=== PATIENT | female | born 2005 | race Caucasian/White ===

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

== ENCOUNTER 2025-02-02 10:10 | Emergency (ER) | payer OTHER, SELFPAY ==
--- NOTE | ~2025-02-02 | XR_ITS ---
EXAMINATION: XR CHEST CLINICAL INFORMATION: cough, fevers COMPARISON: None available. TECHNIQUE: 2 views of the chest were obtained. FINDINGS: No significant abnormality is noted involving the heart, lungs, mediastinum, bony thorax or soft tissues. XR/XR chest 2V IMPRESSION: No acute disease Electronically signed by: Mark Okeefe MD 02/02/2025 11:41 AM EDT
[2025-02-02 10:16] VITALS: BP 110/66; BP 126/60; PULSE 75; PULSE 80; RESP 16; TEMP 36.6; O2SAT 100; BMI 21.6
--- OUTSIDE RECORDS SUMMARY | 2025-02-02 10:20 | XMS_ITS | Encounter Summary ---
Author Organization [employer] Address [address] [place] [address] Care Team Providers Care Bin Operator Name Role Phone Elizabeth Workman SCREEN CLEANER Primary Care Provider [phone] Encounter Details Date Type Department Care Team (Late st Contact Info) Description 02/02/2025 10:20 AM EDT Office Visit [facility] [address] [place] [address] Social History Tobacco Use Types Packs/Day Years Used Date Smoking Tobacco: Never Passive Smoke Exposure: Never Smokeless Tobacco: Never Alcohol Use Standard Drinks/Week Comments Never 0 (1 standard drink = 0.6 oz pur e alcohol) occasional Depression Answer Date Recorded Patient Health Questionnaire-9 Score 8 01/24/2025 Patient Health Questionnaire-9 Score 8 01/24/2025 Last PHQ-9: Questionnaire Data Not on file 0 01/24/2025 Housing Stability Answer Date Recorded What is your housing situation today? I have myriam wong 01/02/[address] you li ve. Do you have problems with any of the following? None of the above 01/02/2025 Food Insecurity Answer Date Recorded Within the past 12 months, y ou worried that your food would run out before you got money to buy more: Never True 01/02/2025 Within the past 12 months,th e food you bought just didn't last and you didn't have enough money to get more: Never True Transportation Answer Date Recorded In the past 12 months, has l ack of transportation kept you from medical appts, meetings, work or from getting things needed for daily living? No 01/02/2025 Utilities Answer Date Recorded In the past 12 months, has t he electric, gas, oil or water company threatened to shut off services in your home? No 01/02/2025 Depression Answer Date Recorded Patient Health Questionnaire-2 Score 2 01/24/2025 Internet Access Answer Date Recorded Internet Access Q1 Yes 01/02/2025 Internet Access Q2 Not on file 01/02/2025 Comments No Sex and Gender Information Value Date Recorded Sex Assigned at Female 04/06/2022 10:18 AM EDT Legal Sex Female 10:18 AM EDT Gender Identity Female 04/06/2022 10:18 AM EDT Sexual Orientation Straight 04/06/2022 10 :18 AM EDT documented as of this encounter Last Filed Vital Signs Vital Sign Reading Time Taken Comments Blood Pressure 120/62 02/02/2025 9:39 AM EDT Pulse 116 02/02/2025 9:39 AM EDT Temperature 36.8 C (98.2 F) 02/02/2025 9:39 AM EDT Respiratory Rate 20 02/02/2025 9:39 AM EDT Oxygen Saturation 90% 02/02/2025 9:39 AM EDT Inhaled Oxygen Concentration - - Weight - - Height - - Body Mass Index - - documented in this encounter Plan of Treatment Upcoming Encounters Date Type Department Care Team (Late st Contact Info) Description 02/23/2025 9:00 AM EDT Office Visit [address] [id number] Elizabeth Workman FNP [address] [place] [phone] 03/21/2025 9:30 AM EDT Clinical Support [facility] [address] [place] [id number] documented as of this encounter Visit Diagnoses Not on filedocumented in this encounter Additional Health Concerns Assessment Noted Time PHQ-9 Depression Total Score: 8 01/25/20 25 1:38 PM EDT documented as of this encounter Care Teams Bin Operator Relationship Specialty Start Date End Date Elizabeth Workman FNP [address] [place] [id number] PCP - General Family Medicine 12/24/23 documented as of this encounter
[2025-02-02 10:55] LABS: IDNOW Serial# 55D5AD1C; Strep A Nucleic Acid Negative (Negative)
--- NOTE | 2025-02-02 11:05 | ED.URI ---
HPI - URI/Sore Throat General Chief Complaint: Upper Respiratory Symptoms Stated Complaint: SOB,NEAR SYNCOPE,?COVID PER EMS Time Seen by Provider: 02/02/25 11:04 Source: patient and old records reviewed Mode of arrival: ambulatory Limitations: no limitations History of Present Illness ED Provider: HAILEY SAGASTUME Narrative: 19 yo female with PMH of anemia, leukopenia, bronchitis states she went Poll [place]where in [place] but denies sick contacts. She notes since yesterday she has had chest wall pain, chest pain with cough, intermittent chest pains. No other travel/procedures/she is only on depo. She states it hurts to take a deep breath. She is worried she has COVID. She had a prehospital EKG showing early repolarization but the doctor also told her she needed a chest xray for blood clots and she needed work up for heart attack. She has not taken any medications for this. She has body aches, chest pains, chills, runny nose. MD elicited complaint: rhinorrhea Onset (ago): day(s) (yesterday) Consistency: intermittent Severity: moderate Description of mucous: clear Able to tolerate fluids by mouth: Yes Exacerbating factors: other (coughing) Relieving factors: nothing Context: sick contacts (states she works at [employer] so it could be that) Associated symptoms: chills, myalgias, headache, rhinorrhea and cough Treatments prior to arrival: none Related Data Previous Rx's ?Medication ?Instructions ?Recorded hydroxyzine HCl 25 mg tablet 25 mg PO Q8H PRN anxiety #20 tabs 12/20/23 amoxicillin 875 mg-potassium 1 tab PO BID 10 days #20 tabs 04/19/24 clavulanate 125 mg tablet azithromycin 250 mg tablet See Rx Instructions PO .COMPLEX #6 04/19/24 tabs prednisone 20 mg tablet 20 mg PO DAILY 7 days #7 tabs 04/19/24 albuterol sulfate 90 mcg/actuation 2 puff inhalation QID PRN 02/02/25 aerosol inhaler shortness of breath or wheezing #6.7 grams ibuprofen 600 mg tablet 600 mg PO Q6H PRN pain #30 tabs 02/02/25 ondansetron 4 mg disintegrating 4 mg PO Q8H PRN nausea and 02/02/25 tablet vomiting #20 tabs Allergies Allergy/AdvReac Type Severity Reaction Status Date / Time melatonin AdvReac Nightmare Verified 02/02/25 10:21 Review of Systems Review of Systems: Constitutional : No Weight loss, pos Fever, pos Chills ENT/Mouth : No sore throat, pos Rhinorrhea Eyes: No Eye Pain, No Swelling Cardiovascular : pos Chest Pain, pos SOB, no Dyspnea on Exertion, No Orthopnea, No Edema, No Palpitations Respiratory : pos Cough, No Sputum Gastrointestinal : pos Nausea, No Vomiting, No Diarrhea, No abdominal Pain, No Hematochezia, No Melena Genitourinary : No Dysuria, No Urinary Frequency Musculoskeletal : No joint pain, pos Myalgias, No Joint Swelling Skin : No Skin Lesions, No rash Neuro : No Weakness, No Numbness, No Dizziness, pos Headache All other systems reviewed and are negative [facility] Past Medical History Attestation statement: The following information was validated with the patient. Source: old records reviewed Medical History Anxiety Social History Social History Alcohol intake: never Patient Tobacco Use Status: Never used Tobacco Physical Exam Vital Signs: Vital Signs: Last Vital Signs Temp 98.2 F 02/02/25 13:27 Pulse 73 02/02/25 13:27 Resp 16 02/02/25 13:27 BP 110/63 02/02/25 13:27 Pulse Ox 100 02/02/25 13:27 O2 Del Method Room Air 02/02/25 13:27 BMI result Body Mass Index 21.6 Appearance: Alert. Oriented X3. No acute distress. Eyes: Pupils equal, round and reactive to light. ENT: Pharynx normal. Neck: Normal inspection. Neck supple. CVS: Normal heart rate and rhythm. Pulses normal. chest wall: ttp along anterior chest wall Respiratory: No respiratory distress. Breath sounds normal. Abdomen: Soft and nontender. Skin: Skin warm and dry. Normal skin color. Normal skin turgor. Extremities: No lower extremity edema. No calf ttp Neuro: Oriented X 3. No motor deficit. No sensory deficit. CN2-12 intact Medications Administered Discontinued Medications Generic Name Dose Route Start Last Admin Trade Name Freq PRN Reason Stop Dose Admin Lactated Ringer's 1,000 mls @ 999 mls/hr 02/02/25 11:33 02/02/25 11:39 Lr IV 02/02/25 12:33 999 mls/hr .Q1H1M ONE Administration Ketorolac Tromethamine 15 mg 02/02/25 11:33 02/02/25 11:39 Ketorolac Tromethamine 15 Mg/Ml Vial IVPUSH 02/02/25 11:34 15 mg ONCE ONE Administration Medical Decision Making Medical Decision Making [facility] Narrative: 19 yo female with PMH of anemia, leukopenia, bronchitis here with viral like illness and chest pain x 24 hours - she is PERC negative, pulses intact doubt dissection, no risk factors for ACS at this time will obtain basic labs, hydrate, start on NSAIDs and obtain bedside ECHO. I suspect she has a viral syndrome. Differential Diagnosis Differential Diagnoses: The differential diagnosis associated with the presentation includes viral syndrome, bronchitis, virus, chest wall pain Admission/Observation Consideration of admission/observation: Escalation of care including admission/observation considered PERC negative VS stable here overall looks better Trop flat x 1 EKG early repolarization normal bedside cardiac POCUS Lab Data [facility] Lab Attestation statement: I reviewed the patient's lab results. 02/02/25 11:28 02/02/25 11:28 Labs: Lab Results 02/02/25 02/02/25 Range/Units 10:41 11:28 WBC 5.1 (4.8-10.8) X10*3/uL RBC 4.57 (4.20-5.50) X10*6/uL Hgb 13.0 (12.0-16.0) g/dl Hct 37.7 (37.0-47.0) % MCV 82.5 (80.0-98.0) fL MCH 28.4 (27.0-33.0) pg MCHC 34.5 (31.0-35.0) g/dl RDW 12.7 (11.0-16.0) % Plt Count 289 (160-400) X10*3/uL MPV 10.0 (9.4-12.3) fL Immature Gran % (Auto) 0.2 (0.0-0.4) % Neut % (Auto) 56.4 (45-73) % Lymph % (Auto) 28.4 (20-40) % [place] % (Auto) 10.5 (2-11) % Eos % (Auto) 3.9 (0-4) % Baso % (Auto) 0.6 (0-2) % Lymph # (Auto) 1.4 (1.2-4.9) X10*3/uL [place] # (Auto) 0.5 (0.1-1.2) X10*3/uL Eos # (Auto) 0.2 (0.0-0.4) X10*3/uL Baso # (Auto) 0.0 (0.0-0.2) X10*3/uL Abs Immat Gran (auto) 0.01 (0.00-0.03) X10*3/uL Absolute Neuts (auto) 2.9 (2.0-8.3) x10*3/uL Absolute Nucleated RBC 0.000 (0.0-0.012) X10*3/uL Nucleated RBC % (auto) 0.0 (0.0-0.2) /100WBC Sodium 142 (135-145) mmol/L Potassium 3.5 (3.3-5.1) mmol/L Chloride 112 H (96-108) mmol/L Carbon Dioxide 24 (22-29) mmol/L Anion Gap 10 L (12-20) BUN 10 (9-16) mg/dL Creatinine 0.62 (0.5-1.4) mg/dL Estim Creat Clear Calc 120.7 Estimated GFR > 60 Random Glucose 95 (60-115) mg/dL Calcium 8.8 (8.4-10.2) mg/dL Troponin I High Sens < 2.7 (<3.5-17.0) ng/L Beta HCG, Quant < 2 mIU/mL Urine Color Yellow Urine Appearance Clear Urine pH 6.0 (5.0-9.0) Ur Specific [place] 1.015 (1.005-1.025) Urine Protein Negative (Neg-Trace) mg/dL Urine Glucose (UA) Negative (Negative) mg/dL Urine Ketones Negative (Negative) mg/dL Urine Blood Trace H (Negative) Urine Nitrite Negative (Negative) Ur Leukocyte Esterase Trace H (Negative) Urine RBC 3-5 H (0-2) /HPF Urine WBC 0-5 (0-5) /HPF Ur Squamous Epith Cells 3-5 (0-2) /HPF Urine Bacteria Trace (None Seen) Hyaline Casts 0-2 (0-2) /LPF COVID-19 (RAMON) Negative (Negative) COVID-19 Clin Com See Note Influenza Type A (ANGELIKA) Negative (Negative) Influenza Type B (ANGELIKA) Negative (Negative) Influenza A & B Note See Note S. pyogenes GrpA ANGELIKA Negative (Negative) Independent Interpretation I performed an independent interpretation of an: EKG and Plain X-Ray (no pneumonia) Interpretation: Rate: 71 Rhythm: NSR [place]: normal Normal P waves. Normal STEPHANE. Normal QRS complex. ST T wave : no GAMA other than early repolarization qTC: 402 prior studies: The study has been interpreted contemporaneously by me. . Radiology Impression Discussion of test interpretation with radiology: I have reviewed the radiologist's reading. Independent Historian Clinical information obtained from an independent historian. History obtained from or confirmed by: EMS External Record Review External record reviewed: Outpatient record Prescription Management I considered prescription management with: Other Procedures Procedure Narrative Procedure Narrative: EMERGENCY ULTRASOUND INTERPRETATION-Limited Echocardiography? The study reveals:? Impression: NORMAL LV FUNCTION, NO RV DYSFUNCTION, NO PERICARDIAL EFFUSION Emergent Cardiac for Indication:? Views Used: PLAX, PSSA, A4, SX, IVC Pericardial Effusion/Tamponade Findings: NONE RV Dilation (> LV diam in 4ch apical):? NONE Global LV Fxn: NORMAL IVC Dilation and Resp Variation: NORMAL Performed by: HAILEY Date: 02/02/25 Time: 115pm CPT:18023; Reference Codes? [email or web address] [email or web address] Discharge Plan Discharge Clinical Impression: Viral infection Patient Disposition: Home, Self-Care Instructions: Viral Syndrome (ED) Additional Instructions: your labs are reassuring your COVID swab was negative and was your strep test your blood counts were normal, your EKG and bedside ECHO were reassuring, your test for your heart was normal rest and stay hydrated return for any worsening symptoms or concerns. Prescriptions: New ibuprofen 600 mg tablet 600 mg PO Q6H PRN (Reason: pain) Qty: 30 0RF albuterol sulfate 90 mcg/actuation HFA aerosol inhaler 2 puff inhalation QID PRN (Reason: shortness of breath or wheezing) Qty: 6.7 0RF ondansetron 4 mg tablet,disintegrating 4 mg PO Q8H PRN (Reason: nausea and vomiting) Qty: 20 0RF No Action hydroxyzine HCl 25 mg tablet 25 mg PO Q8H PRN (Reason: anxiety) Qty: 20 0RF azithromycin 250 mg tablet See Rx Instructions .ROUTE .COMPLEX Qty: 6 0RF Rx Instructions: For 250 mg dose pack: take 500 mg today (day 1), then 250 mg for 4 days (days 2-5) prednisone 20 mg tablet 20 mg PO DAILY 7 Days Qty: 7 0RF amoxicillin-pot clavulanate 875-125 mg tablet 1 tab PO BID 10 Days Qty: 20 0RF Stand Alone Forms: Work/School Release Interventions: ED Discharge Assessment Last Done: 02/02/25 13:27 Discharge Date/Time: 02/02/25 13:35 Print Language: Iraqi
[2025-02-02 11:06] LABS: IDNOW Serial# 58CA691E
[2025-02-02 11:07] LABS: COVID-19 Test Negative (Negative); IDNOW Serial# 08D9AD1C; Influenza B2 Negative (Negative)
--- OUTSIDE RECORDS SUMMARY | 2025-02-02 11:20 | XMS_ITS | Encounter Summary ---
Author Organization [employer] Address [address] [facility] 7[address] [place] [address] Care Team Providers Care Director Human Services Name Role Phone Elizabeth Workman COUNSELOR MARRIAGE AND FAMILY Primary Care Provider Encounter Details Date Type Department Care Team ([facility] st Contact Info) Description 02/02/2025 Orders Only GENERIC EXTERNAL DATA DEPARTMENT Provider, Generic External Data Social History Tobacco Use Types Packs/Day Years [...] is your housing situation today? I have myriamlaurel wong 01/02/[address] you [...] AM EDT documented as of this encounter Plan of Treatment Upcoming Encounters Date Type Department Care Team ([facility] st Contact Info) Description 02/23/2025 9:00 AM EDT Office Visit [address] [address] [facility] [address] [place] [address] 03/21/2025 9:30 AM EDT Clinical Support [address] [address] documented as of this encounter Procedures Procedure Name Priority Date/Time Associated Diagnosis Comments INFLUENZA A B2 ID NOW (ADDISON) Routine 02/02/2025 10:41 AM EDT STREP A NUCLEIC ACID Routine 02/02/2025 10:41 AM EDT COVID-19 ID NOW (ADDISON) Routine 02/02/2025 10:41 AM EDT documented in this encounter Results * COVID-19 ID NOW (ADDISON) (02/02/2025 10:41 AM EDT) IDNOW SERIAL# [id number] [facility] COVID-19 TEST Negative Negative [facility] COVID-19 NOTE See Note [facility] Comment: Results are for the identification of SARS-CoV2 RNA. TheSARS-CoV2 RNA is generally detectable in respiratory samplesduring the acute phase of infection. Positive results areindicative of the presence of SARS-CoV-2 RNA; clinicalcorrelation with patient history and other diagnosticinformation is necessary to determine patient infectionstatus. Positive results do not rule out bacterial infectionor co- infection with other viruses.Testing facilities within the [facility] and [facility] are required to report all positive results tothe appropriate public health authorities.Negative results should be treated as presumptive and, ifinconsistent with clinical signs and symptoms or necessaryfor patient management, should be tested with differentauthorized or cleared molecular tests. Negative results donot preclude SARS-CoV2 RNA infection and should not be usedas the sole basis for patient management decisions. Negativeresults should be considered in the context of a patient'srecent exposures, history and the presence of clinical signsand symptoms consistent with COVID-19.This test has been authorized by the FDA under an EmergencyUse Authorization (EUA) for use by authorized laboratories.Testing performed on the [place] ID NOW utilizing NAAT. 02/02/2025 10:4 1 AM EDT 02/02/2025 10:45 AM EDT us Generic External Data Provider LAB MOLECULAR MANDA GNOSTICS ORDERABLES Final Result [facility] [address] [place] [phone] * Influenza A B2 ID NOW (Culinary Agents) (02/02/2025 10:41 AM EDT) IDNOW SERIAL# [id number] [facility] Influenza A Negative Negative [facility] Influenza B2 Negative Negative [facility] Influenza A B2 Note See Note [facility] Comment:The [place] ID NOW In fluenza A B2 test is used for thequalitative detection of influenza A and B from patientswith signs and symptoms of respiratory infection.Negative results do not preclude influenza virus infectionand should not be used as the sole basis for diagnosis,treatment or other patient management decisions.There is a risk of false negative results due to thepresence of variants in the viral targets of the assay, lowlevels of virus in the specimen and co- infection withRespiratory Syncytial Virus. 02/02/2025 10:4 1 AM EDT 02/02/2025 10:45 AM EDT Generic External Data Provider LAB MICROBIOLOGY - GENERAL ORDERABLES Final Result Performing Organization Address [facility] de Phone Number [facility] [address] [place] [phone] * Strep A Nucleic Acid (02/02/2025 10:41 AM EDT) IDNOW SERIAL# [id number] [facility] Strep A Nucleic Acid Negative Negative [facility] Comment:All test results mus t be correlated with clinical findings.This test has not been evaluated for monitoring treatment ofinfection.Additional follow-up testing using the culture method isrequired if the result is negative and clinical symptomspersist, or in the event of an acute rheumatic feveroutbreak. 02/02/2025 10:4 1 AM EDT 02/02/2025 10:45 AM EDT Generic External Data Provider LAB MICROBIOLOGY - GENERAL ORDERABLES Final Result Performing Organization Address [facility] de Phone Number [facility] [address] [place] [phone] documented in this encounter Visit Diagnoses Not on filedocumented in this encounter Additional Health Concerns Assessment Noted Time PHQ-9 Depression Total Score: 8 01/25/20 25 1:38 PM EDT documented as of this encounter Care Teams Director Human Services Relationship Specialty Start Date End Date Elizabeth Workman FNP [address] [place] [phone] PCP - General Family Medicine 12/24/23 documented as of this encounter
--- OUTSIDE RECORDS SUMMARY | 2025-02-02 11:20 | XMS_ITS | Encounter Summary ---
Author Organization [employer] Address [address] [facility] 7[address] [place] [address] Care Team Providers Care Social Media Marketing Specialist Name Role Phone Yaneth Mirza DO Primary Care Provider Argentina Castañeda SAW OPERATOR Primary Care Provider [phone] Norah Bernardo DISTRIBUTION A CLASS LINEMAN Primary Care Provider MontezumaElizabeth SAW OPERATOR Primary Care Provider Reason for Visit * Reason Onset Date Comments triage 11/03/2022 Encounter Details Date Type Department Care Team (Late st Contact Info) Description 11/03/2022 Telephone [facility] [address] [place], [place] [phone] Yaneth Mirza DO [address] [place], [place] [phone] triage Social History Tobacco Use Types Packs/Day Years Used Date Smoking Tobacco: Never Assessed Comments Unknown Sex and Gender Information Value Date Recorded Sex Assigned at Female 04/06/2022 10:18 AM EDT Legal Sex Female 10:18 AM EDT Gender Identity Female 04/06/2022 10:18 AM EDT Sexual Orientation Straight 04/06/2022 10 :18 AM EDT COVID-19 Exposure Response Date Recorded In the last 10 days, have yo u been in contact with someone who was confirmed or suspected to have Coronavirus/COVID-19? No / Unsure 11/03/2022 2:22 PM EDT documented as of this encounter Miscellaneous Notes * Telephone Encounter - Lydia Farah RN - 11/03/2022 2:03 PM EDT Triage call with [place] [facility] Coordinator [place] [id number] Pt mother reports Pt started with a headache a few days ago. Pt was working Sat afternoon and started having a headache , got shaky and weak. Pt has reported that there is light and sound sensitivity. Pt also had some nausea. Pain is mainly located in forehead and back of head. Pt is taking tylenolfor pain with some effect and is out of school today. Advised Mother to bring [facility] today forprovider to see her. Mother agreed with disposition and home care reviewed. Protocol Used: Headache (Pediatric) Protocol-Based Disposition: See in Office or Video Visit Today or Tomorrow Video visit not offered Positive Triage Question: * Headache present > 24 hours and unexplained (Exception: analgesics not yet tried, or headache is part of a viral illness) * All higher-acuity triage questions were negative Care Advice Discussed: * Reassurance and Education - Mild Headache * Pain Medicine * Food May Help * Rest - Lie Down * Cold Pack for Pain * Stretch Neck Muscles * Reasons To Call Back - Headache becomes severe - Vomiting occurs - Unexplained headache lasts over 24 hours - Headache with a viral illness lasts over 3 days - Your child becomes worse * Telephone Encounter - Tiffanie Black - 11/03/2022 11:36 AM EDT Symptom: Headache Outcome: Schedule an urgent appointment (within 4 hours) or talk to a nurse or provider soon Reason: Started within the past 3 days The caller accepted this outcome documented in this encounter Plan of Treatment Upcoming Encounters Date Type Department Care Team (Late st Contact Info) Description 02/23/2025 9:00 AM EDT Office Visit [facility] [address] [place] [address] MontezumaElizabeth FNP [address] [place] [address] 03/21/2025 9:30 AM EDT Clinical Support [facility] [address] [place] [address] documented as of this encounter Visit Diagnoses Not on filedocumented in this encounter Care Teams Social Media Marketing Specialist Relationship Specialty Start Date End Date Yaneth Mirza DO [address] [place] [address] PCP - General Pediatrics 06/07/18 06/28/23 Argentina Castañeda FNP [address] [place] [phone] PCP - General Family Medicine 06/29/23 11/17/23 Norah Bernardo NP [address] [place] [address] PCP - General Family Medicine 11/18/23 12/23/23 MontezumaElizabeth FNP [address] [place] [address] PCP - General Family Medicine 12/24/23 documented as of this encounter
--- OUTSIDE RECORDS SUMMARY | 2025-02-02 11:20 | XMS_ITS | Encounter Summary ---
Author Organization [employer] Address [address] [facility] [address] [place] [address] Care Team Providers Care Lieutenant Governor Name Role Phone Elizabeth Workman GEROPSYCHOLOGIST Primary Care Provider [phone] Encounter Details Date Type Department Care Team (Latest Contact Info) Description 02/02/2025 Travel Social History Tobacco Use Types Packs/Day Years [...] t he electric, gas, oil or water [employer] threatened to shut off services in your [...] Description 02/23/2025 9:00 AM EDT Office Visit [facility] [address] [place] [phone] JacintaElizabeth reyes FN[address] [address] 03/21/2025 9:30 AM EDT Clinical Support [address] [address] documented as of this encounter Visit Diagnoses Not on filedocumented in this encounter Additional Health Concerns Assessment Noted Time PHQ-9 Depression Total Score: 8 01/25/20 25 1:38 PM EDT documented as of this encounter Care Teams Lieutenant Governor Relationship Specialty Start Date End Date Elizabeth Workman FNP [address] [place] [phone] PCP - General Family Medicine 12/24/23 documented as of this encounter
--- OUTSIDE RECORDS SUMMARY | 2025-02-02 11:20 | XMS_ITS | Clinical Summary ---
Author Organization [employer] Address [address] [facility] [address] [place] [address] Care Team Providers Care Repack Room Worker Name Role Phone Elizabeth Workman [employer]PER[employer] Primary Care Provider [phone] Allergies Active Allergy Reactions Criticality Noted Date Comments Banana Other 02/17/2023 Cantaloupe (Diagnostic) Other 02/17/2023 Pistachio Nut (Diagnostic) Other 3 Medications * This document contains information received from the source organization and may not represent a complete record from that organization. cetirizine (ZyrTEC) 10 MG tablet 1 tablet by oral route daily prn allergy symptoms 2 Active Allergy Relief 180 MG tablet Take 180 mg by mouth in the morning. 2 Active ketotifen (Zaditor) 0.025 % ophthalmic solution instill 1 drop by ophthalmic route 2 times every day into affected eye(s) prn itchiness 2 Active Deep Sea Nasal [place] 0.65 % nasal spray USE 1-2 SPRAYS IN EACH NOSTRIL EVERY 2 TO 3 HOURS NEEDED FOR NASAL CONGESTION 2 Active Humidifier miscIndications:N remigio congestion Use as directed 1 each 3 Active diphenhydrAMINE (BENADryl) 25 MG tabletIndications :Food allergy Take 1 tablet (25 mg) by mouth every 6 (six) hours if needed for allergies. 30 tablet 3 Active fluticasone (Flonase Allergy Relief) 50 MCG/ACT nasal spray 1 spray by intranasal route daily ;administer into each nostril 16 g 1 4 Active hydrOXYzine HCl (Atarax) 25 MG tabletIndications :Right acute otitis media Take 1 tablet (25 mg) by mouth every 8 (eight) hours if needed for anxiety. 120 tablet 3 4 Active ondansetron (Zofran) 4 MG tablet Take 1 tablet (4 mg) by mouth every 8 (eight) hours if needed for nausea or vomiting for up to 10 doses. 10 tablet 5 Active Acetaminophen Extra Strength 500 MG tablet Take 2 tablets (1,000 mg) by mouth every 6 (six) hours if needed (pain, fever). 40 tablet 5 Active medroxyPROGESTERo ne (Depo-Provera) 150 MG/ML injectionIndicati ons:Encounter for contraceptive management, unspecified type Inject 1 mL (150 mg) into the muscle every 3 (three) months. 1 mL 3 5 Active SUMAtriptan (Imitrex) 50 MG tablet Take 1 tablet (50 mg) by mouth 1 (one) time if needed for migraine. May repeat dose once in 2 hours if no relief. Do not exceed 2 doses in 24 hours. 9 tablet 3 5 Active naproxen (Naprosyn) 500 MG tablet TAKE 1 TABLET BY MOUTH TWICE A DAY prn severe pain. 30 tablet 5 Active riboflavin (Vitamin B-2) 400 MG tabletIndications :Migraine with aura and without status migrainosus, not intractable Take 1 tablet (400 mg) by mouth Once per day. 30 tablet 3 5 Active Magnesium 400 MG capsuleIndication s:Migraine with aura and without status migrainosus, not intractable Take 1 capsule by mouth Once per day. 30 capsule 3 5 Active Hospital, Clinic, or Other Facility Administered Medication Ordered Dose Route Frequency Start Date End Date Status medroxyPROGESTERone (Depo-Provera) injection 150 mgIndications:Encounte r for contraceptive management, unspecified type 150 mg IM Every 3 months 10/19/2024 01/12/2026 Acti ve Active Problems Problem Noted Date Diagnosed Date Moderate major depression 01/22/2025 Migraine with aura and witho ut status migrainosus, not intractable 11/07/2024 Anxiety and depression 10/12/2024 Amenorrhea 05/25/2024 Assessment & Plan (05/25/2024 1:38 PM EST): Likely from Depo provera. HCG urine negative in office. Given only 2 days late and having some cramping,gladys check serum Hcg to r/o . Food allergy 03/11/2023 Overview (03/11/2023): Allergy to bananas, cantaloupe and pistachio. Pt has been avoiding these foods without issue. Has Benadryl if needed prn. Chronic pain of left knee 03/11/2023 Overview (07/04/2023): Hx abnml Xray: Focal lucency along the medial aspect of the intercondylar fossa, concerning for an osteochondral lesion. Environmental allergies 11/05/2017 Overview (07/04/2023): Stable with allergy meds prn Encounters * This document contains information received from the source organization and may not represent a complete record from that organization. Date Type Department Care Team Description 02/02/2025 10:20 AM EDT Office Visit [facility] [address] [phone] 02/02/2025 Orders Only GENERIC EXTERNAL DATA DEPARTMENT Provider, Generic External Data 02/02/2025 Travel 01/02/2025 9:00 AM EDT Office Visit [address] [address] Elizabeth Workman FNP Migraine with aura and without status migrainosus, not intractable (Primary Dx); Encounter for contraceptive management, unspecified type; Palpitations; Leukopenia, unspecified type 01/02/2025 Travel 01/01/2025 Orders Only [facility] [address] [place] [phone] Elizabeth Workman FNP Palpitations (Primary Dx); Leukopenia, unspecified type 01/01/[address] [phone] Elizabeth Workman FNP Chart Prep 12/25/2024 9:20 AM EDT Office Visit [facility] [address] [place] [phone] Aaron Shah MD Migraine with aura and without status migrainosus, not intractable (Primary Dx); Oskar-Payne virus seropositivity; Acute URI 12/25/2024 Travel 12/23/2024 Results Follow-Up [facility] [address] [address] Elizabeth Workman FNP TSH W/Reflex to FT4 12/21/2024 [facility] [address] [address] Aaron Shah MD 12/20/2024 3:40 PM EDT [facility] [address] [address] Araon Shah MD Polyarthralgia (Primary Dx); Chronic fatigue 12/20/2024 Travel 11/24/2024 11:45 AM EDT Office Visit [address] [address] Elizabeth Workman FNP Anxiety and depression (Primary Dx); Palpitations 11/24/2024 Travel 11/22/[address] [address] Elizabeth Workman FNP CHART PREP 11/22/2024 Results Follow-Up [address] [address] Sosa Dietz MD hCG, Total, Quantitative 11/21/2024 10:20 AM EDT [facility] [address] [address] Ad Cao MD Pinna infection, acute, left (Primary Dx) 11/21/2024 Orders Only [address] [address] Elizabeth Workman FNP 11/15/[address] [address] Elizabeth Workman FNP Med Refill (Pt requesting med refill fro sumatriptan ) 11/07/2024 Orders Only [facility] [address] [place] [address] Aaron Shah MD Migraine with aura and without status migrainosus, not intractable (Primary Dx) 11/07/2024 Orders Only [facility] [address] [place] [address] Aaron Shah MD from Last 3 Months Immunizations Immunization Administration Dates Next Due DTaP 08/22/2009,10/22/2006 DTaP / Hep B / IPV 2005,2005, 006 HPV 9-Valent 05/28/2017,10/28/2016 Hep A, ped/adol, 2 dose 01/11/2007,07/05/2006 Hep B, Adolescent or Pediatric 02/08/2024,2005 Hib (HbO) 10/22/2006, 6,2005,08/19 IPV 08/22/2009 Influenza injectable quadriv alent preservative free 04/04/2021,04/17/2020,05/28/2017 Influenza live intranasal qu adrivalent LIAV4 03/18/2015 Influenza, IIV3, injectable 05/13/2011,0 03/05/2009,05/05/2007,08/04 MMR 08/22/2009 MMRV 07/05/2006 Meningococcal MCV4P ACYW-135 10/28/2016 Meningococcal Polysaccharide A,C,Y,W-135 TT Conjugate 04/20/2022 Pneumococcal Conjugate PCV 7 10/22/2006, 2005,2005,08/19 Tdap 10/28/2016 Varicella 08/22/2009 Family History Medical History Relation Name Comments Heart disease Maternal Grandfather Arthritis Mother Migraines Mother Relation Name Status Comments Maternal Grandfather Mother Social History Tobacco Use Types Packs/Day Years Used Date Smoking Tobacco: Never Passive Smoke Exposure: Never Smokeless Tobacco: Never Tobacco Cessation:Counseling Given: Not Answered Alcohol Use Standard Drinks/Week Comments Never 0 [...] Q2 Not on file 01/02/2025 Comments No Intention Date Recorded No desire to become (finding) 0 10/19/2024 Sex and Gender Information Value Date Recorded Sex Assigned at Female 04/06/2022 10:18 AM EDT Legal Sex Female 10:18 AM EDT Gender Identity Female 04/06/2022 10:18 AM EDT Sexual Orientation Straight 04/06/2022 10 :18 AM EDT Last Filed Vital Signs Vital Sign Reading Time Taken Comments Blood Pressure 120/62 02/02/2025 9:39 AM EDT Pulse 116 02/02/2025 9:39 AM EDT Temperature 36.8 C (98.2 F) 02/02/2025 9:39 AM EDT Respiratory Rate 20 02/02/2025 9:39 AM EDT Oxygen Saturation 90% 02/02/2025 9:39 AM EDT Inhaled Oxygen Concentration - - Weight 58 kg (127 lb 12.8 oz) 01/02/2025 9:29 AM EDT Height 160 cm (5' 3 ) 01/02/2025 9:29 AM EDT Body Mass Index 22.64 01/02/2025 9:29 AM EDT Plan of Treatment Upcoming Encounters Date Type Department Care Team (Late st Contact Info) Description 02/23/2025 9:00 AM EDT Office Visit [facility] [address] [place] [phone] Jacinta, Elizabeth, [employer] [address] [place], [place] [phone] 03/21/2025 9:30 AM EDT Clinical Support [facility] [address] [place] [address] [phone] Health Maintenance Due Date Last Done Comments Fluoride Varnish 02/26/2013 08/26/2012 Alcohol/Substance Use Screening 2017 Meningococcal B Vaccine (1 of 2 - Standard) 2021 COVID-19 Vaccine ( season) 2024 09/19/2021, 11/11/2020, 10/21/2020 Influenza Vaccine (#1) 2025 , 04/17/2020, 05/28/2017, Additional history exists Family Planning (PISQ) 10/19/2025 10/19/2024 Chlamydia and Gonorrhea Screening 11/21/2025 11/21/2024, 01/14/2024, 10/11/2023 Disability Screening 01/02/2026 01/02/2025 SDOH Screening 01/02/2026 01/02/2025 Tobacco Screening 01/04/2026 01/04/2025 Depression Screening 01/24/2026 01/24/2025, 01/25/20 DTaP/Tdap/Td Vaccines (7 - Td or Tdap) 10/28/2026 10/28/2016, 08/22/2009, 10/22/2006, Additional history exists Zoster Vaccines (1 of 2) 2055 RSV Patients and Patients Aged 60 years or older (1 - 1-dose 75+ series) 2080 HIB Vaccines Completed 10/22/2006, 12/05, 2005, Additional history exists Pneumococcal Vaccine: Pediatrics (0 to 5 Years) and At-Risk Patients (6 to 49) Years Aged Out 10/22/2006, 2005, 2005, Additional history exists No longer eligible based on patient's age to complete this topic Hepatitis A Vaccines Completed 01/11/2007, 07/05/19 07 IPV Vaccines Completed 08/22/2009, 12/05, 2005, Additional history exists MMR Vaccines Completed 08/22/2009, 07/05/2006 Varicella Vaccines Completed 08/22/2009, 07/05/2006 HPV Vaccines Completed 05/28/2017, 10/28/2016 Meningococcal Vaccine Completed 04/20/2022, 017 Hepatitis B Vaccines Completed 02/08/2024, 2005, 2005, Additional history exists HIV Screening Completed 11/21/2024, 03/08, 07/09/2023 Hepatitis C Screening Completed 11/21/2024 , 03/27/2024, 07/09/2023 RSV under 20 months Aged Out No longe r eligible based on patient's age to complete this topic Rotavirus Vaccines Aged Out No longer eligible based on patient's age to complete this topic Procedures Procedure Name Priority Date/Time Associated Diagnosis Comments COVID-19 ID NOW (ADDISON) Routine 02/02/2025 10:41 AM EDT INFLUENZA A B2 ID NOW (ADDISON) Routine 02/02/2025 10:41 AM EDT STREP A NUCLEIC ACID Routine 02/02/2025 10:41 AM EDT POCT , URINE Routine 01/02/2025 10:11 AM EDT Encounter for contraceptive management, unspecified type POCT INFLUENZA B (ID NOW RAPID MOLECULAR) Routine 12/25/2024 9:21 AM EDT Acute URI POCT INFLUENZA A (ID NOW RAPID MOLECULAR) Routine 12/25/2024 9:21 AM EDT Acute URI POCT RAPID COVID ANTIGEN Routine 12/25/2024 9:21 AM EDT Acute URI POCT RAPID STREP A Routine 12/25/2024 9: 21 AM EDT Acute URI OTHER REF TEST - MISC Routine 12/21/2024 11:53 AM EDT MAGNESIUM Routine 12/21/2024 11:53 AM EDT Chronic fatigue VITAMIN D,25-OH,TOTAL,IA Routine 12/21/2024 11:53 AM EDT Polyarthralgia Chronic fatigue OSKAR PAYNE VIRUS ANTIBODY PANEL Routine 12/21/2024 11:53 AM EDT Polyarthralgia Chronic fatigue RHEUMATOID FACTOR Routine 12/21/2024 11: 53 AM EDT Polyarthralgia Chronic fatigue RICHI SCREEN, IFA, W/REFL TITER AND PATTERN Routine 12/21/2024 11:53 AM EDT Polyarthralgia Chronic fatigue LYME DISEASE AB W/REFL TO BLOT (IGG, IGM) Routine 12/21/2024 11:53 AM EDT Polyarthralgia Chronic fatigue HEMOGLOBIN A1C Routine 12/21/2024 11:53 AM EDT Polyarthralgia Chronic fatigue TSH W/REFLEX TO FT4 Routine 12/21/2024 1 1:53 AM EDT Polyarthralgia Chronic fatigue VITAMIN B12 Routine 12/21/2024 11:53 AM EDT Polyarthralgia Chronic fatigue COMPREHENSIVE METABOLIC PANEL Routine 12/21/2024 11:53 AM EDT Polyarthralgia Chronic fatigue CBC WITH AUTO DIFFERENTIAL Routine 12/21/2024 11:53 AM EDT Polyarthralgia Chronic fatigue TSH W/REFLEX TO FT4 Routine 12/21/2024 1 1:53 AM EDT Palpitations POCT HEMOGLOBIN Routine 12/20/2024 4:26 PM EDT Polyarthralgia HI I&D HEMATOMA SEROMA/FLUID COLLECTION Routine 11/21/2024 11:13 AM EDT Pinna infection, acute, left HEPATITIS B CORE ANTIBODY (IGM) Routine 11/21/2024 11:08 AM EDT HEPATITIS B CORE AB TOTAL Routine 11/21/2024 11:08 AM EDT Routine screening for STI (sexually transmitted infection) HEPATITIS B SURFACE ANTIBODY, QUALITATIVE Routine 11/21/2024 11:08 AM EDT Routine screening for STI (sexually transmitted infection) HEPATITIS B SURFACE ANTIGEN, EIA Routine 11/21/2024 11:08 AM EDT Routine screening for STI (sexually transmitted infection) HEPATITIS C AB W/REFL TO HCV RNA, QN, PCR Routine 11/21/2024 11:08 AM EDT Routine screening for STI (sexually transmitted infection) HIV 1/2 ANTIGEN/ANTIBODY, FOURTH GENERATION W/RFL Routine 11/21/2024 11:08 AM EDT Routine screening for STI (sexually transmitted infection) SYPHILIS SCREEN Routine 11/21/2024 11:08 AM EDT Routine screening for STI (sexually transmitted infection) HCG, TOTAL, QN Routine 11/21/2024 11:08 AM EDT Amenorrhea CHLAMYDIA/N. GONORRHOEAE RNA, TMA, UROGENITAL Routine 11/21/2024 11:08 AM EDT Routine screening for STI (sexually transmitted infection) TOPICAL APPLICATION OF FLUORIDE VARNISH Routine 08/26/2012 12:00 AM EDT from Last 3 Months or Most Recently Relevant to Health Maintenance Results * Influenza A B2 ID NOW (Addison) (02/02/2025 10:41 AM EDT) IDNOW SERIAL# [id number] [facility] Influenza A Negative Negative [facility] Influenza B2 Negative Negative [facility] Influenza A B2 Note See Note [facility] Comment:The Addison ID NOW In fluenza [...] GENERAL ORDERABLES Final Result Performing Organization Address [facility] Co de Phone Number [facility] [address] [place] [phone] * Strep A Nucleic Acid (02/02/2025 10:41 AM EDT) IDNOW SERIAL# [id number] [facility] Strep A Nucleic Acid Negative Negative [facility] Comment:All test results mus t be correlated with clinical findings.This test has not been evaluated for monitoring treatment ofinfection.Additional follow-up testing using the culture method isrequired if the result is negative and clinical symptomspersist, or in the event of an acute rheumatic feveroutbreak. 02/02/2025 10:4 1 AM EDT 02/02/2025 10:45 AM EDT us Generic External Data Provider LAB MICROBIOLOGY - GENERAL ORDERABLES Final Result Performing Organization Address [facility]/ZIP Co de Phone Number [facility] [address] [place] [phone] * COVID-19 ID NOW (ADDISON) (02/02/2025 10:41 AM EDT) IDNOW SERIAL# [id number] [facility] COVID-19 TEST Negative Negative [facility] COVID-19 NOTE See Note [facility] Comment: Results are for the identification of SARS-CoV2 RNA. TheSARS-CoV2 RNA is generally detectable in respiratory samplesduring the acute phase of infection. Positive results areindicative of the presence of SARS-CoV-2 RNA; clinicalcorrelation with patient history and other diagnosticinformation is necessary to determine patient infectionstatus. Positive results do not rule out bacterial infectionor co- infection with other viruses.Testing facilities within the [facility] and itsterritories are required to report all positive results [...] use by authorized laboratories.Testing performed on the [employer] ID NOW utilizing NAAT. 02/02/2025 10:4 1 AM EDT 02/02/2025 10:45 AM EDT us Generic External Data Provider LAB MOLECULAR MANDA GNOSTICS ORDERABLES Final Result [facility] [address] [place] [phone] * POCT Urine (01/02/2025 10:11 AM EDT) Preg Test, Ur Negative Negative, Indeterminate, None Detected, Invalid, Specimen unsatisfactory for evaluation, Weakly Positive, 2+ QC Media Lot # [id number] Lot# Expiration Date 540,026 Urine 01/02/2025 10:1 1 AM EDT [facility] [employer] POINT OF CARE TEST ENTER/EDIT ORDERABLES Final Result * Influenza B (ID NOW Rapid Molecular) (12/25/2024 9:21 AM EDT) Pathologist [facility] Influenza B Negative Negative, Indeterminate [facility] Swab 12/25/2024 9:21 AM EDT Aaron Shah MD POINT OF CARE TEST ENTER/EDIT OR DERABLES Final Result Performing Organization Address [facility]/ZIP Co de Phone Number [facility] [address] [place] [phone] * Influenza A (ID NOW Rapid Molecular) (12/25/2024 9:21 AM EDT) [facility] Influenza A Negative Negative, Indeterminate [facility] Swab 12/25/2024 9:21 AM EDT Aaron Shah MD POINT OF CARE TEST ENTER/EDIT OR DERABLES Final Result Performing Organization Address [facility]/ZIP Co de Phone Number [facility] [address] [place] [phone] * POCT Rapid COVID Ag (12/25/2024 9:21 AM EDT) Pathologist [facility] Rapid COVID Ag Negative [facility] Swab 12/25/2024 9:21 AM EDT us Aaron Shah MD POINT OF CARE TEST ENTER/EDIT OR DERABLES Final Result Performing Organization Address [facility] Co de Phone Number [facility] [address] [place] [phone] * POCT rapid strep A manually resulted (12/25/2024 9:21 AM EDT) Rapid Strep A Screen Negative Negative, None Detected [facility] Swab 12/25/2024 9:21 AM EDT us Aaron Shah MD POINT OF CARE TEST ENTER/EDIT OR DERABLES Final Result Performing Organization Address City/[facility]/ZIP Co de Phone Number [facility] [address] [place] [phone] * Other Reference Test - Misc (12/21/2024 11:53 AM EDT) 12/21/2024 11:5 3 AM EDT 12/21/2024 11:53 AM EDT Narrative [facility] - 12/27/2024 11:24 AM EDT CODE 10760 Parvovirus B19 DNA, Qualitative, Real-Time PCR us Aaron Shah MD LAB BLOOD ORDERABLES Final Resul t Performing Organization Address [facility] Co de Phone Number [facility] [address] [place] [phone] * Vitamin D, 25-Hydroxy, Total, Immunoassay (12/21/2024 11:53 AM EDT) [facility] Vitamin D 25-OH Total 35.0 >30 ng/mL [facility] Comment: Health Based Reference Values*< 20 ng/mL Rbidhoenf79-18 ng/mL Insufficient> 30 ng/mL Sufficient*Meredith SIMMONS. N Engl J Med. 2007;357:266-280There is no well-established upper level of normal vitamin Dlevels. Some laboratories use 50 ng/mL as an upper limit ofnormal. However, toxicity is patient-dependent and may occurat any level. Careful correlation with the patient'spresentation is necessary and, if there is concern forvitamin D toxicity, treatment should be consideredirrespective of the serum level.Care must be taken in interpreting Vitamin D results fromdifferent laboratories and methodologies. Published datademonstrated that results from patients undergoinghemodialysis may show a negative bias when tested withvarious automated 25-OH vitamin D assays when compared toLC-MS/MS.When testing samples from patients whose predominant form ofVitamin D is Vitamin D2, such as patients receiving VitaminD2 supplementation, results that are subtherapeutic shouldbe confirmed with another method such as LC-MS/MS. Blood 12/21/2024 11:5 3 AM EDT 12/21/2024 11:53 AM EDT us Aaron Shah MD LAB BLOOD ORDERABLES Final Resul t Performing Organization Address City/[facility] Co de Phone Number [facility] [address] [place] [phone] * TSH with Reflex to Free T4 (12/21/2024 11:53 AM EDT) Only the most recent of2 resultswithin the time period is included. TSH reflex Free T4 0.83 0.32 - 4.0 uIU/mL [facility] Blood Venous blood specimen / Unknown 12/21/2024 11:53 AM EDT 12/21/2024 11:53 AM EDT us Aaron Shah MD LAB BLOOD ORDERABLES Final Resul t Performing Organization Address [facility] de Phone Number [facility] [address] [place] [phone] * Lyme Disease Ab with Reflex to Blot (IgG, IgM) (12/21/2024 11:53 AM EDT) Lyme Antibody Screen <0.90 index [facility] Comment:Index Interpretation ----- < 0.90 Negative 0.90-1.09 Equivocal > 1.09 PositiveAs recommended by the Food and Drug Administration(FDA), all samples with positive or equivocalresults in a Borrelia burgdorferi antibody screenwill be tested using a blot method. Positive orequivocal screening test results should not beinterpreted as truly positive until verified as suchusing a supplemental assay (e.g., B. burgdorferi blot).The screening test and/or blot for B. burgdorferiantibodies may be falsely negative in early stagesof Lyme disease, including the period when erythemamigrans is apparent.THIS TEST WAS PERFORMED AT:[facility] [place] [phone] NOEL MD Lyme Blot TNP [facility] 12/21/2024 11:5 3 AM EDT 12/21/2024 11:53 AM EDT us Aaron Shah MD LAB BLOOD ORDERABLES Final Resul t [facility] [address] [place] [phone] * (ABNORMAL) CBC auto differential (12/21/2024 11:53 AM EDT) White Blood Count 3.9(L) 4.8 - 10.8 X10*3/uL [facility] Red Blood Count 4.74 4.20 - 5.50 X10*6/uL [facility] Hemoglobin 13.4 12.0 - 16.0 g/dl [facility] Hematocrit 39.0 37.0 - 47.0 % [facility] Mean Corpuscular Volume 82.3 80.0 - 98.0 fL [facility] Mean Corpuscular Hemoglobin 28.3 27.0 - 33.0 pg [facility] Mean Corpuscular HGB Conc 34.4 31.0 - 35.0 g/dl [facility] Red Cell Distribution Width 12.5 11.0 - 16.0 % [facility] Platelet Count 256 160 - 400 X10*3/uL [facility] Mean Platelet Volume 10.2 9.4 - 12.3 fL [facility] Neutrophils Percent Auto 64.6 45 - 73 % [facility] Imm Gran Pct Auto 0.3 0.0 - 0.4 % [facility] Lymphocytes Percent Auto 23.9 20 - 40 % [facility] Monocytes Percent Auto 8.6 2 - 11 % [facility] Eosinophils Percent Auto 2.3 0 - 4 % [facility] Basophils Percent Auto 0.3 0 - 2 % [facility] NRBC Pct Auto 0.0 0.0 - 0.2 /100WBC [facility] Neutrophils Absolute Auto 2.6 2.0 - 8.3 x10*3/uL [facility] Imm Gran Abs Auto 0.01 0.00 - 0.03 X10*3/uL [facility] Lymphocytes Absolute Auto 0.9(L) 1.2 - 4.9 X10*3/uL [facility] Monocytes Absolute Auto 0.3 0.1 - 1.2 X10*3/uL [facility] Eosinophils Absolute Auto 0.1 0.0 - 0.4 X10*3/uL [facility] Basophils Absolute Auto 0.0 0.0 - 0.2 X10*3/uL [facility] NRBC Abs Auto 0.000 0.0 - 0.012 X10*3/uL [facility] Blood Venous blood specimen / Unknown 12/21/2024 11:53 AM EDT 12/21/2024 11:53 AM EDT us Aaron Shah MD LAB BLOOD ORDERABLES Final Resul t [facility] [address] [place] [phone] * (ABNORMAL) Oskar-Payne Virus Antibody Panel (12/21/2024 11:53 AM EDT) EBV Viral Capsid Antigen (VCA) Antibody IgG 537.00(A) U/mL [facility] Comment:U/mL Interpretation ---- <18.00 Negative 18.00-21.99 Equivocal >21.99 Positive EBV Viral Capsid Antigen (VCA) Ab IgM <36.00 U/mL [facility] Comment:U/mL Interpretation ---- <36.00 Negative 36.00-43.99 Equivocal >43.99 Positive EBV Nuclear Antigen (EBNA) Antibody IgG >600.00(A ) U/mL [facility] Comment:U/mL Interpretation ---- <18.00 Negative 18.00-21.99 Equivocal >21.99 Positive Interpretation: SEE NOTE [facility] Comment:Suggestive of a past Oskar-Payne virus infection.In infants, a similar pattern may occur as a resultof passive maternal transfer of antibody.THIS TEST WAS PERFORMED AT:[employer] [place] [phone] NOEL MD Blood Venous blood specimen / Unknown 12/21/2024 11:53 AM EDT 12/21/2024 11:53 AM EDT us Aaron Shah MD LAB BLOOD ORDERABLES Final Resul t Performing Organization Address [facility] Co de Phone Number [facility] [address] [place] [phone] * Rheumatoid Factor (12/21/2024 11:53 AM EDT) Rheumatoid Factor <13.0 <15.0 IU/mL [facility] Blood Venous blood specimen / Unknown 12/21/2024 11:53 AM EDT 12/21/2024 11:53 AM EDT us Aaron Shah MD LAB BLOOD ORDERABLES Final Resul t Performing Organization Address [facility] Co de Phone Number [facility] [address] [place] [phone] * RICHI Screen,IFA, with Reflex to Titer and Pattern (12/21/2024 11:53 AM EDT) Anti Nuclear Antibody Screen NEGATIVE NEGATIVE [facility] Comment:RICHI IFA is a first l ine screen for detecting thepresence of up to approximately 150 autoantibodies invarious autoimmune diseases. A negative RICHI IFA resultsuggests an RICHI-associated autoimmune disease is notpresent at this time, but is not definitive. If thereis high clinical suspicion for Sjogren's syndrome,testing for anti-SS-A/Ro antibody should be considered.Anti-Karmen-1 antibody should be considered for clinicallysuspected inflammatory myopathies.AC-0: NegativeInternational Consensus on RICHI Patterns(https://doi.org/10.1515/xmia-3099-8518)For additional information, please refer tohttp://education.[facility]/faq/WNS737(This link is being provided for informational/educational purposes only.)THIS TEST WAS PERFORMED AT:[employer] [place] [phone] NOEL MD RICHI Titer TNP [facility] RICHI Pattern TNP [facility] RICHI TITER 2 ([facility] LAB) [facility] R[facility] Pattern 2 TNP [facility] RICHI TITER 3 [facility] RICHI PATTERN 3 TNP [facility] Blood Venous blood specimen / Unknown 12/21/2024 11:53 AM EDT 12/21/2024 11:53 AM EDT us Aaron Shah MD LAB BLOOD ORDERABLES Final Resul t Performing Organization Address City/[facility]/ZIP Co de Phone Number [facility] [address] [place] [phone] * Magnesium (12/21/2024 11:53 AM EDT) Magnesium 1.8 1.6 - 2.6 mg/dL [facility] Blood Venous blood specimen / Unknown 12/21/2024 11:53 AM EDT 12/21/2024 11:53 AM EDT us Aaron Shah MD LAB BLOOD ORDERABLES Final Resul t Performing Organization Address [facility]/ZIP Co de Phone Number [facility] [address] [place] [phone] * Hemoglobin A1c (12/21/2024 11:53 AM EDT) Pathologist [facility] Hemoglobin A1c 5.0 <6.0 % [facility] Comment:Hemoglobin A1C Refer ence Range Adults: 4.8 - 6.0 % Non diabetic: < 6.0 % Goal: < 7.0 %Additional Action Suggested: > 8.0 %Note: Hemoglobin A1c results are invalid for patients with abnormal amounts of HbF. Blood transfusions may impact the HbA1c concentration in the patient sample. Estimated Average Glucose 97 mg/dL [facility] Comment:eAG = Estimated ave rage glucose which is %A1C expressed asaverage glucose, using the formula of the E7M-BxfqhlrJczgtmi Glucose study (ADAG), Diabetes Care, Vol.31,#8,Jan. 2007 Blood Venous blood specimen / Unknown 12/21/2024 11:53 AM EDT 12/21/2024 11:53 AM EDT us Aaron Shah MD LAB BLOOD ORDERABLES Final Resul t Performing Organization Address City/[facility]/ZIP Co de Phone Number [facility] [address] [place] [phone] * Vitamin B12 (12/21/2024 11:53 AM EDT) Pathologist [facility] Vitamin B12 384 200 - 900 pg/mL [facility] Comment:NORMAL 200-900 PG/ML INDETERMINATE 160-199 PG/ML DEFICIENT < 160 PG/ML Blood Venous blood specimen / Unknown 12/21/2024 11:53 AM EDT 12/21/2024 11:53 AM EDT us Aaron Shah MD LAB BLOOD ORDERABLES Final Resul t Performing Organization Address City/[facility]/ZIP Co de Phone Number [facility] [address] [place] [phone] * (ABNORMAL) Comprehensive Metabolic Panel (12/21/2024 11:53 AM EDT) Pathologist [facility] Sodium 140 135 - 145 mmol/L [facility] Potassium 3.5 3.3 - 5.1 mmol/L [facility] Chloride 109(H) 96 - 108 mmol/L [facility] Carbon Dioxide 26 22 - 29 mmol/L [facility] Anion Gap 9(L) 12 - 20 [facility] Urea Nitrogen (BUN) 9 9 - 16 mg/dL [facility] Creatinine, Serum 0.61 0.5 - 1.4 mg/dL [facility] Estimated Glomerular Filt Rate >60 [facility] Comment:Chronic Kidney Disea se: Estimated GFR < 60 mL/min/1.26v2Wrergb Kidney Disease: Estimated GFR < 15 mL/min/1.73m2 Glucose 123(H) 60 - 115 mg/dL [facility] Calcium 9.2 8.4 - 10.2 mg/dL [facility] Bilirubin, Total 0.7 0.0 - 1.0 mg/dL [facility] Aspartate Amino Transferase 24 5 - 31 U/L [facility] Alanine Aminotransferase 15 0 - 31 U/L [facility] Total Protein 7.3 6.5 - 8.0 g/dL [facility] Albumin Level 4.4 3.5 - 5.0 g/dL [facility] Alkaline Phosphatase 76 39 - 117 U/L [facility] Blood Venous blood specimen / Unknown 12/21/2024 11:53 AM EDT 12/21/2024 11:53 AM EDT us Aaron Shah MD LAB BLOOD ORDERABLES Final Resul t [facility] [address] [place] [phone] * POCT Hemoglobin (12/20/2024 4:26 PM EDT) Hemoglobin 13.7 12.0 - 15.0 Blood 12/20/2024 4:26 PM EDT us Aaron Shah MD POINT OF CARE TEST ENTER/EDIT OR DERABLES Final Result * HI I&D HEMATOMA SEROMA/FLUID COLLECTION (11/21/2024 11:13 AM EDT) Narrative Regina, Vincent, MD - 11/21/2024 11:13 AM EDT Ad Cao MD 11/21/2024 11:20 AM Incision and Drainage Date/Time: 11/21/2024 11:13 AM Performed by: Ad Cao MD Authorized by: Ad Cao MD Consent: Consent obtained: Written Consent given by: Patient Risks, benefits, and alternatives were discussed: yes Risks discussed: Bleeding and infection (Scarring.) [place] protocol: Procedure explained and questions answered to patient or proxy's satisfaction: yes Patient identity confirmed: Verbally with patient Location: Type: Seroma Size: 3-4 mm Location: left ear pinna. Pre-procedure details: Skin preparation: Povidone-iodine Sedation: Sedation type: None Anesthesia: Anesthesia method: None Procedure type: Complexity: Simple Procedure details: Drainage amount: Scant Packing materials: None Post-procedure details: Procedure completion: Tolerated Comments: Small fluctuant area on upper outer left pinna unroofed with 25 gauge needed. Bloody material only, no pus. Hemostasis with pressure and gauze. Bacitracin and bandaid applied. Ad Cao MD IN CLINIC/BEDSIDE ORDERABLES Fi nal Result * Syphilis Screen (11/21/2024 11:08 AM EDT) Pathologist [facility] Syphilis Screen Nonreactive Nonreactive [facility] Blood 11/21/2024 11:0 8 AM EDT 11/21/2024 1:22 PM EDT [facility] [employer] LAB BLOOD ORDERABLES Final Re sult [facility] [address] [place] [phone] * Hepatitis C Antibody with Reflex to HCV, RNA, Quantitative, Real-Time PCR (11/21/2024 11:08 AM EDT) Hepatitis C Antibody Nonreactive Nonreactive [facility] Comment:Antibodies to HCV no t detected; does not exclude early acuteHCV infection. Blood Venous blood specimen / Unknown 11/21/2024 11:08 AM EDT 11/21/2024 1:22 PM EDT [facility] LAB BLOOD ORDERABLES Final Re sult Performing Organization Address City/[facility]/ZIP Co de Phone Number [facility] [address] [place] [phone] * Hepatitis B Core??Antibody (IgM) (11/21/2024 11:08 AM EDT) Hepatitis B Core Antibody IgM TNP [facility] 11/21/2024 11:0 8 AM EDT 11/21/2024 1:22 PM EDT [facility] LAB BLOOD ORDERABLES Final Re sult Performing Organization Address City/[facility]/ZIP Co de Phone Number [facility] [address] [place] [phone] * Chlamydia/N. Gonorrhoeae RNA, TMA, Urogenitial (11/21/2024 11:08 AM EDT) Pathologist [facility] CT PCR NOT DETECTED Not Detect. [facility] Comment:A not detected test result does not exclude the possibilityof infection because test results can be affected byimproper specimen collection, concurrent antibiotic therapy,or the number of organisms in the specimen which may bebelow the sensitivity of the test. As with many diagnostictests, results from the Xpert CT/NG assay should beinterpreted in conjunction with other laboratory andclinical data available to the clinician.Xpert CT/NG performance has not been evaluated in patientsless than 14 years of age. The assay should not be used forthe evaluationof suspected sexual abuse or for other medico-legalindications. Additional testing is recommended in anycircumstance when false positive or false negative resultscould lead to adverse medical, social or psychologicalconsequences. NG PCR NOT DETECTED Not Detect. [facility] Comment:A not detected test result does not exclude the possibilityof infection because test results can be affected byimproper specimen collection, concurrent antibiotic therapy,or the number of organisms in the specimen which may bebelow the sensitivity of the test. As with many diagnostictests, results from the Xpert CT/NG assay should beinterpreted in conjunction with other laboratory andclinical data available to the clinician.Xpert CT/NG performance has not been evaluated in patientsless than 14 years of age. The assay should not be used forthe evaluationof suspected sexual abuse or for other medico-legalindications. Additional testing is recommended in anycircumstance when false positive or false negative resultscould lead to adverse medical, social or psychologicalconsequences. Urine (Urine, Random) 11/21/2024 11:08 AM EDT 11/21/2024 1:06 PM EDT Narrative [facility] - 11/21/2024 3:00 PM EDT Urine [facility] MICROBIOLOGY - GENERAL OR DERABLES Final Result Performing Organization Address [facility]/ZIP Co de Phone Number [facility] [address] [place] [phone] * Hepatitis B surface antigen, EIA (11/21/2024 11:08 AM EDT) Hepatitis B Surface Ag Negative Negative [facility] Blood Venous blood specimen / Unknown 11/21/2024 11:08 AM EDT 11/21/2024 1:22 PM EDT [facility] LAB BLOOD ORDERABLES Final Re sult Performing Organization Address [facility]/ZIP Co de Phone Number [facility] [address] [place] [phone] * Hepatitis B Core Antibody, Total (11/21/2024 11:08 AM EDT) Hepatitis B Core Antibody Reactive Nonreactive [facility] Comment:Presumptive evidence of anti-HBc. Blood Venous blood specimen / Unknown 11/21/2024 11:08 AM EDT 11/21/2024 1:22 PM EDT [facility] LAB BLOOD ORDERABLES Final Re sult Performing Organization Address City/[facility] Co de Phone Number [facility] [address] [place] [phone] * HIV-1/2 Antigen and Antibodies, Fourth Generation, with Reflexes (11/21/2024 11:08 AM EDT) Pathologist [facility] HIV AB/AG Nonreactive Nonreactive [facility] Comment:HIV-1 p24 Ag and/or HIV-1/HIV-2 Ab not detected.A test result that is nonreactive does not exclude thepossibility of exposure to or infection with HIV-1 and/orHIV-2. Nonreactive results in this assay for individualswith prior exposure to HIV-1 and/or HIV-2 may be due toantigen and antibody levels that are below the limit ofdetection of this assay.The [employer] HIV Ag/Ab Combo assay result andsupplemental assay results should be interpreted inconjunction with the patient's clinical presentation,history and other laboratory results. If the results areinconsistent with clinical evidence, additional testing issuggested to confirm the result. Blood Venous blood specimen / Unknown 11/21/2024 11:08 AM EDT 11/21/2024 1:22 PM EDT [facility] LAB BLOOD ORDERABLES Final Re sult Performing Organization Address City/[facility]/ZIP Co de Phone Number [facility] [address] [place] [phone] * Hepatitis B Surface Antibody, Qualitative (11/21/2024 11:08 AM EDT) Pathologist [facility] ~Hepatitis B Surface Antibody REACTIVE Nonreactive [facility] Comment:REACTIVE: > 11.99 mI U/mL Blood Venous blood specimen / Unknown 11/21/2024 11:08 AM EDT 11/21/2024 1:22 PM EDT [facility] [employer] LAB BLOOD ORDERABLES Final Re sult Performing Organization Address City/[facility]/ZIP Co de Phone Number [facility] [address] [place] [phone] * hCG, Total, Quantitative (11/21/2024 11:08 AM EDT) HCG Quantitative <2 mIU/mL [facility] Comment:Weeks post LMP Appro ximate hCG(Last Menstrual Period) Range (mIU/ml)3 - 4 weeks 9 - 1304 - 5 weeks 75 - 2,6005 - 6 weeks 850 - 20,8006 - 7 weeks 4000 - 100,2007 - 12 weeks 11,500 - 289,16474 - 16 weeks 18,300 - 137,95076 - 29 weeks (2nd trimester) 1,400 - 53,42776 - 41 weeks (3rd trimester) 940 - 60,000The Addison B- hCG assay is used for the early detection ofpregnancy; it cannot be used to diagnose any conditionunrelated to . If a B-hCG level is not supportedby the clinical evidence, results should be confirmed by analternative method (qualitative urine hCG, for example). Blood Venous blood specimen / Unknown 11/21/2024 11:08 AM EDT 11/21/2024 1:22 PM EDT Sosa Dietz MD LAB BLOOD ORDERABLES Final Result Performing Organization Address City/[facility]/ZIP Co de Phone Number [facility] [address] [place] [phone] from Last 3 Months Insurance [facility] , [address] [place] [address] Care Teams Repack Room Worker Relationship Specialty Start Date End Date Elizabeth Workman FNP [address] [place] [phone] PCP - General Family Medicine 12/24/23
--- OUTSIDE RECORDS SUMMARY | 2025-02-02 11:20 | XMS_ITS | Encounter Summary ---
Author Organization [employer] Address [address] [facility] 7t [place] [address] Care Team Providers Care Clinical Practitioner Name Role Phone [place], [facility] Primary Care Provider [phone] Encounter Details Date Type Department Care Team ([facility] st Contact Info) Description 12/23/2024 Results Follow-Up [facility] [address] [place] [address] [place] [facility] [address] [place] [address] TSH W/Reflex to FT4 Social History Tobacco Use Types Packs/Day Years Used Date Smoking Tobacco: Never Passive Smoke Exposure: Never Smokeless Tobacco: Never Alcohol Use Standard Drinks/Week Comments Never 0 (1 standard drink = 0.6 oz pur e alcohol) occasional Depression Answer Date Recorded Patient Health Questionnaire-9 Score 0 10/09/2024 Patient Health Questionnaire-9 Score 0 10/09/2024 Last PHQ-9: Questionnaire Data Not on file 0 10/09/2024 Housing Stability Answer Date Recorded What is your housing situation today? I have myriam wong 10/11/[address] you li ve. Do you have problems with any of the following? None of the above 10/11/2023 Food Insecurity Answer Date Recorded Within the past 12 months, y ou worried that your food would run out before you got money to buy more: Never True 10/11/2023 Within the past 12 months,th e food you bought just didn't last and you didn't have enough money to get more: Never True 11/2023 Transportation Answer Date Recorded In the past 12 months, has l ack of transportation kept you from medical appts, meetings, work or from getting things needed for daily living? No 10/11/2023 Utilities Answer Date Recorded In the past 12 months, has t he electric, gas, oil or water company threatened to shut off services in your home? No 10/11/2023 Depression Answer Date Recorded Patient Health Questionnaire-2 Score 0 10/09/2024 Comments No Sex and Gender Information Value [...] Description 02/23/2025 9:00 AM EDT Office Visit [facility] [address] [place] [phone] Elizabeth Workman FNP [address] [place] [phone] 03/21/2025 9:30 AM EDT Clinical Support [address] [phone] documented as of this encounter Visit Diagnoses Not on filedocumented in this encounter Additional Health Concerns Assessment Noted Time PHQ-9 Depression Total Score: 0 10/10/19 25 11:30 AM EDT documented as of this encounter Care Teams Clinical Practitioner Relationship Specialty Start Date End Date Elizabeth Workman FNP [address] [place] [phone] PCP - General Family Medicine 12/24/23 documented as of this encounter
[2025-02-02 11:33] LABS: MANUAL DIFF FLAG NO
[2025-02-02 11:37] LABS: Appearance Urine Clear; Glucose Urine UA Negative (Negative); Hematocrit 37.7 % (37.0-47.0); Hemoglobin 13.0 g/dl (12.0-16.0); Imm Gran Abs Auto 0.01 X10*3/uL (0.00-0.03); Imm Gran Pct Auto 0.2 % (0.0-0.4); Lymphocytes Absolute Auto 1.4 X10*3/uL (1.2-4.9); Mean Corpuscular HGB Conc 34.5 g/dl (31.0-35.0); Mean Corpuscular Hemoglobin 28.4 pg (27.0-33.0); Mean Corpuscular Volume 82.5 fL (80.0-98.0); NRBC Abs Auto 0.000 X10*3/uL (0.0-0.012); NRBC Pct Auto 0.0 /100WBC (0.0-0.2); PH 6.0 (5.0-9.0); Platelet Count 289 X10*3/uL (160-400); Red Blood Count 4.57 X10*6/uL (4.20-5.50); Specific Gravity - Urine 1.015 (1.005-1.025); UMIC TRIGGER UACC YES; White Blood Count 5.1 X10*3/uL (4.8-10.8)
[2025-02-02] MEDS: Lactated Ringers 1,000 ML 999 ML IV (11:39)
[2025-02-02 12:00] LABS: Anion Gap 10 (12-20); Blood Urea Nitrogen 10 mg/dL (9-16); Calcium 8.8 mg/dL (8.4-10.2); Carbon Dioxide 24 mmol/L (22-29); Chloride 112 mmol/L (96-108); Creatinine Clr Calc Pharmacy 120.7; Estimated Glomerular Filt Rate > 60; Potassium 3.5 mmol/L (3.3-5.1); Sodium 142 mmol/L (135-145)
--- NOTE | 2025-02-02 12:05 | ECG_ITS ---
Test Reason : chest pain Blood Pressure : */* mmHG Vent. Rate : 71 BPM Atrial Rate : 71 BPM P-R Int : 122 ms QRS Dur : 84 ms QT Int : 370 ms P-R-T Axes : 41 81 62 degrees QTcB Int : 402 ms Normal sinus rhythm with sinus arrhythmia Early repolarization Normal ECG When compared with ECG of 20-Dec-2023 19:43, No significant change was found Referred By: Marielena Ambriz Electronically Signed By: FEDERICO BEAL
[2025-02-02 12:27] LABS: Troponin-I High Sensitivity < 2.7 ng/L (<3.5-17.0)
[2025-02-02 13:27] VITALS: BP 110/63; PULSE 73; RESP 16; TEMP 36.8; O2SAT 100
== END 2025-02-02 13:35 | disposition home or self-care (01) ==
PROVIDERS: Emergency Provider Emergency Medicine; PCP Registered Nurse
DX: B34.9 Viral infection, unspecified (principal); R06.02 Shortness of breath; R07.9 Chest pain, unspecified; R05.9 Cough, unspecified; R50.9 Fever, unspecified; Z03.818 Encounter for observation for suspected exposure to other biological agents ruled out
CPT/HCPCS: 36415; 71046; 80048; 81001; 84484; 84702; 85025; 87502; 87635; 87651; 93005; 93308; 96374; 99284; J1885; J7120

== ENCOUNTER → 2025-02-02 11:04 | Outpatient (BNV) | payer OTHER, SELFPAY | PROVIDERS: Emergency Provider Emergency Medicine; PCP Registered Nurse; Visit Provider Radiology Diagnostic Radiology | DX: R05.9 Cough, unspecified (principal); R50.9 Fever, unspecified | CPT/HCPCS: 71046 ==

== ENCOUNTER → 2025-02-02 12:05 | Outpatient (BNV) | payer OTHER, SELFPAY | PROVIDERS: Emergency Provider Emergency Medicine; PCP Registered Nurse; Visit Provider Internal Medicine | DX: R07.89 Other chest pain (principal) | CPT/HCPCS: 93010 ==

== ENCOUNTER 2025-03-08 18:17 | Outpatient (REF) | payer OTHER, SELFPAY ==
--- OUTSIDE RECORDS SUMMARY | 2025-03-08 10:40 | XMS_ITS | Encounter Summary ---
Author Organization [employer] Address [address] [facility] [address] [address] [address] 7[address] [place] [address] Care Team Providers Care Bicycle Racer Name Role Phone Elizabeth Workman [employer] Primary Care Provider [phone] Reason for Visit * Reason Comments Headache Cough Sore Throat Encounter Details Date Type Department Care Team ([facility] st Contact Info) Description 03/08/2025 10:40 AM EDT Office Visit [facility] [address] [place] [address] Viral illness Social History Tobacco Use Types Packs/Day Years Used Date Smoking Tobacco: Never Passive Smoke Exposure: Never Smokeless Tobacco: Never Tobacco Cessation:Counseling Given: Not Answered Alcohol Use Standard Drinks/Week Comments Never 0 (1 standard drink = 0.6 oz pur e alcohol) occasional Depression Answer Date Recorded Patient Health Questionnaire-9 Score 6 02/23/2025 Patient Health Questionnaire-9 Score 6 02/23/2025 Last PHQ-9: Questionnaire Data Not on file 0 02/23/2025 Housing Stability Answer Date Recorded What is [...] Date Recorded Patient Health Questionnaire-2 Score 0 02/23/2025 Internet Access Answer Date Recorded Internet Access [...] Sign Reading Time Taken Comments Blood Pressure 117/68 03/08/2025 10:19 AM EDT Pulse 82 03/08/2025 10:19 AM EDT Temperature 36.8 C (98.3 F) 03/08/2025 10:19 AM EDT Respiratory Rate 17 03/08/2025 10:19 AM EDT Oxygen Saturation 95% 03/08/2025 10:19 AM EDT Inhaled Oxygen Concentration - - Weight 60.4 kg (133 lb 3.2 oz) 03/08/2025 10:19 AM EDT Height 160 cm (5' 3 ) 03/08/2025 10:19 AM EDT Body Mass Index 23.6 03/08/2025 10:19 AM EDT documented in this encounter Plan of Treatment Upcoming Encounters Date Type Department Care Team (Late st Contact Info) Description 03/21/2025 9:30 AM EDT Clinical Support [facility] [address] [place] [address] Scheduled Orders Name Type Priority Associated Diagnoses Orde r Schedule Respiratory Viral Panel PCR Lab Routine Viral illness Ordered: 03/08/2025 documented as of this encounter Procedures Procedure Name Priority Date/Time Associated Diagnosis Comments POCT INFLUENZA B (ID NOW RAPID MOLECULAR) Routine 03/08/2025 10:31 AM EDT Viral illness POCT INFLUENZA A (ID NOW RAPID MOLECULAR) Routine 03/08/2025 10:31 AM EDT Viral illness POCT COVID-19 AG ADDISON ID NOW Routine 03/08/2025 10:31 AM EDT Viral illness POCT RAPID STREP A Routine 03/08/2025 10 :31 AM EDT Viral illness documented in this encounter Results * POCT COVID-19 Ag Addison ID NOW (03/08/2025 10:31 AM EDT) Coronavirus Antigen PCR Negative Negative, Indeterminate, None Detected, Invalid, Specimen unsatisfactory for evaluation, Weakly Positive, 2+ Swab 03/08/2025 10:3 1 AM EDT us Ad Cao MD POINT OF CARE TEST ENTER/EDIT O RDERABLES Final Result * Influenza A (ID NOW Rapid Molecular) (03/08/2025 10:31 AM EDT) Influenza A Negative Negative, Indeterminate [facility] Swab 03/08/2025 10:3 1 AM EDT us Ad Cao MD POINT OF CARE TEST ENTER/EDIT O RDERABLES Final Result Performing Organization Address City/[facility]/ZIP Co de Phone Number [facility] [address] [place] [phone] * Influenza B (ID NOW Rapid Molecular) (03/08/2025 10:31 AM EDT) Influenza B Negative Negative, Indeterminate [facility] Swab 03/08/2025 10:3 1 AM EDT us Ad Cao MD POINT OF CARE TEST ENTER/EDIT O RDERABLES Final Result Performing Organization Address City/[facility]/ZIP Co de Phone Number [facility] [address] [place] [address] [phone] * POCT rapid strep A manually resulted (03/08/2025 10:31 AM EDT) Rapid Strep A Screen Negative Negative, None Detected [facility] Swab 03/08/2025 10:3 1 AM EDT us Ad Cao MD POINT OF CARE TEST ENTER/EDIT O RDERABLES Final Result [facility] [address] [place] [address] [phone] documented in this encounter Visit Diagnoses Diagnosis Viral illness Unspecified viral infection, in conditions classified elsewhere and of unspecified site documented in this encounter Additional Health Concerns Assessment Noted Time PHQ-9 Depression Total Score: 6 02/24/20 25 9:11 AM EDT documented as of this encounter Care Teams Bicycle Racer Relationship Specialty Start Date End Date Elizabeth Workman FNP [address] [place] [phone] PCP - General Family Medicine 12/24/23 documented as of this encounter
--- OUTSIDE RECORDS SUMMARY | 2025-03-08 18:20 | XMS_ITS | Encounter Summary ---
Author Organization [employer] Address [address] [facility] [address] [place] [address] Care Team Providers Care Tube Depatcher Name Role Phone Yaneth Mirza DO Primary Care Provider Argentina Castañeda PATIENT SERVICES MANAGER Primary Care Provider [phone] Norah Bernardo MISSILE MECHANIC Primary Care Provider [place] PATIENT SERVICES MANAGER Primary Care Provider Reason for Visit * Reason Onset Date Comments triage 11/03/2022 Encounter Details Date Type Department Care Team (Late st Contact Info) Description 11/03/2022 Telephone [facility]INE [address] [place], [place] [phone] Yaneth Mirza DO [address] [place], [place] [phone] triage Social History Tobacco Use Types Packs/Day [...] 11/03/2022 2:03 PM EDT Triage call with prentiss Blankbook Forwarder ID [id number] Pt mother reports Pt started with a [...] today. Advised Mother to bring Pt into [facility] today forprovider to see her. Mother agreed [...] Description 03/21/2025 9:30 AM EDT Clinical Support [facility] [address] [place] [address] documented as of this encounter Visit Diagnoses Not on filedocumented in this encounter Care Teams Tube Depatcher Relationship Specialty Start Date End Date Yaneth Mirza DO [address] [place] [address] PCP - General Pediatrics 06/07/18 06/28/23 Argentina Castañeda FNP [address] [place] [address] PCP - General Family Medicine 06/29/23 11/17/23 Norah Bernardo NP [address] [place] [address] PCP - General Family Medicine 11/18/23 12/23/23 [place] reyes FNP [address] [place] [address] PCP - General Family Medicine 12/24/23 documented as of this encounter
--- OUTSIDE RECORDS SUMMARY | 2025-03-08 18:20 | XMS_ITS | Encounter Summary ---
Author Organization [employer] Address [address] [facility] [address] [place] [address] Care Team Providers Care Tinner Automatic Name Role Phone Elizabeth Workman ROCKET ENGINE TESTER Primary Care Provider [phone] Encounter Details Date Type Department Care Team (Latest Contact Info) Description 03/08/2025 Travel Social History Tobacco Use Types Packs/Day [...] Description 03/21/2025 9:30 AM EDT Clinical Support [facility] [address] [place] [address] documented as of this encounter Visit Diagnoses Not on filedocumented in this encounter Additional Health Concerns Assessment Noted Time PHQ-9 Depression Total Score: 6 02/24/20 25 9:11 AM EDT documented as of this encounter Care Teams Tinner Automatic Relationship Specialty Start Date End Date Elizabeth Workman FNP [address] [place] [address] PCP - General Family Medicine 12/24/23 documented as of this encounter
--- OUTSIDE RECORDS SUMMARY | 2025-03-08 18:20 | XMS_ITS | Clinical Summary ---
Author Organization [employer] Address [address] [facility] [address] [place] [address] Care Team Providers Care Buildings Painter Name Role Phone Elizabeth Workman BALE OPENER Primary Care Provider [phone] Allergies Active Allergy Reactions Criticality Noted Date Comments Banana Other 02/17/2023 Cantaloupe (Diagnostic) Other 02/17/2023 Pistachio Nut (Diagnostic) Other 3 Medications * This document contains information received from the source organization and may not represent a complete record from that organization. Allergy Relief 180 MG tablet Take 180 mg by mouth in the morning. 04/20/20 22 Active ketotifen (Zaditor) 0.025 % ophthalmic solution instill 1 drop by ophthalmic route 2 times every day into affected eye(s) prn itchiness 10/03/19 22 Active Deep Sea Nasal [place] 0.65 % nasal spray USE 1-2 SPRAYS IN EACH NOSTRIL EVERY 2 TO 3 HOURS NEEDED FOR NASAL CONGESTION 04/14/20 22 Active Humidifier miscIndications: Nasal congestion Use as directed 1 each 03/10/20 23 Active diphenhydrAMINE (BENADryl) 25 MG tabletIndication s:Food allergy Take 1 tablet (25 mg) by mouth every 6 (six) hours if needed for allergies. 30 tablet 03/10/20 23 Active hydrOXYzine HCl (Atarax) 25 MG tabletIndication s:Right acute otitis media Take 1 tablet (25 mg) by mouth every 8 (eight) hours if needed for anxiety. 120 tablet 3 03/31/20 24 Active ondansetron (Zofran) 4 MG tablet Take 1 tablet (4 mg) by mouth every 8 (eight) hours if needed for nausea or vomiting for up to 10 doses. 10 tablet 10/17/19 25 Active Acetaminophen Extra Strength 500 MG tablet Take 2 tablets (1,000 mg) by mouth every 6 (six) hours if needed (pain, fever). 40 tablet 10/17/19 25 Active medroxyPROGESTER one (Depo-Provera) 150 MG/ML injectionIndicat ions:Encounter for contraceptive management, unspecified type Inject 1 mL (150 mg) into the muscle every 3 (three) months. 1 mL 3 10/20/19 25 Active SUMAtriptan (Imitrex) 50 MG tablet Take 1 tablet (50 mg) by mouth 1 (one) time if needed for migraine. May repeat dose once in 2 hours if no relief. Do not exceed 2 doses in 24 hours. 9 tablet 3 11/08/19 25 Active naproxen (Naprosyn) 500 MG tablet TAKE 1 TABLET BY MOUTH TWICE A DAY prn severe pain. 30 tablet 12/21/19 25 Active riboflavin (Vitamin B-2) 400 MG tabletIndication s:Migraine with aura and without status migrainosus, not intractable Take 1 tablet (400 mg) by mouth Once per day. 30 tablet 3 01/03/20 25 Active Magnesium 400 MG capsuleIndicatio ns:Migraine with aura and without status migrainosus, not intractable Take 1 capsule by mouth Once per day. 30 capsule 01/03/20 25 Active cetirizine (ZyrTEC) 10 MG tablet Take 1 tablet (10 mg) by mouth Once per day. 30 tablet 02/16/20 25 026 Active fluticasone (Flonase) 50 MCG/ACT nasal spray Administer 2 sprays into each nostril Once per day. Shake gently. Before first use, prime pump. After use, clean tip and replace cap. 16 g 02/16/20 25 026 Active pseudoephedrine ER (Sudafed-12 Hour) 120 MG 12 hr tablet Take 1 tablet (120 mg) by mouth every 12 (twelve) hours if needed for congestion. Do not crush, chew, or split. 20 tablet 02/16/20 25 026 Active ibuprofen 600 MG tablet Take 1 tablet (600 mg) by mouth every 6 (six) hours if needed for mild pain. 40 tablet 1 02/16/20 25 025 Active acetaminophen (Tylenol 8 Hour) 650 MG ER tablet Take 1 tablet (650 mg) by mouth every 8 (eight) hours if needed for mild pain. Do not crush, chew, or split. 40 tablet 1 02/16/20 25 025 Active cetirizine (ZyrTEC) 10 MG tabletIndication s:Chronic nasal congestion Take 1 tablet (10 mg) by mouth Once per day. 30 tablet 5 02/24/20 25 026 Active lidocaine (Lidoderm) 5 % patchIndications :Costochondritis , acute Apply 1 patch topically Once per day. Remove & discard patch within 12 hours or as directed by MD. 30 patch 1 02/24/20 25 Active albuterol 108 (90 Base) MCG/ACT inhalerIndicatio ns:Chronic nasal congestion Inhale 2 puffs every 6 (six) hours if needed for wheezing. 18 g 02/24/20 25 026 Active cetirizine (ZyrTEC) 10 MG tablet 1 tablet by oral route daily prn allergy symptoms 10/03/19 22 025 Discontinued fluticasone (Flonase Allergy Relief) 50 MCG/ACT nasal spray 1 spray by intranasal route daily ;administer into each nostril 16 g 1 07/09/19 24 025 Discontinued benzonatate (Tessalon Perles) 100 MG capsule Take 1 capsule (100 mg) by mouth if needed in the morning, at noon, and at bedtime for cough for up to 10 days. Do not crush or chew. 30 capsule 02/16/20 25 025 ibuprofen 800 MG tabletIndication s:Costochondriti s, acute Take 1 tablet (800 mg) by mouth every 8 (eight) hours if needed for mild pain for up to 10 days. 30 tablet 02/24/20 25 025 Hospital, Clinic, or Other Facility Administered Medication Ordered Dose Route Frequency Start Date End Date Status medroxyPROGESTERone (Depo-Provera) injection 150 mgIndications:Encounte r for contraceptive management, unspecified type 150 mg IM Every 3 months 10/19/2024 01/12/2026 Acti ve Active Problems Problem Noted Date Diagnosed Date Moderate major depression (CMS/HCC) 01/22/2025 Migraine with aura and witho ut [...] organization. Date Type Department Care Team Description 03/08/2025 10:40 AM EDT Office Visit [facility] [address] [place] [phone] Viral illness 03/08/2025 Travel 02/23/2025 9:00 AM EDT Office Visit [facility] [address] [place] [address] Elizabeth Workman FNP Costochondritis, acute (Primary Dx); Chronic nasal congestion; Migraine with aura and without status migrainosus, not intractable; Anxiety and depression 02/23/2025 Travel 02/22/2025 Telephone [facility] [address] [place] [phone] Elizabeth Workman FNP chart prep 02/15/2025 8:40 AM EDT Office Visit [facility] [address] [address] Liza Barrett DO Acute URI (Primary Dx) 02/15/2025 Travel 02/02/2025 10:20 [address] EDT [facility] [address] [address] Jace Goodman MD Chest pain, unspecified type (Primary Dx) 02/02/2025 Orders Only GENERIC EXTERNAL DATA DEPARTMENT Provider, Generic External Data 02/02/2025 Travel 01/02/2025 9:00 AM EDT Office Visit [facility] [address] [place] [phone] Elizabeth Workman FNP Migraine with aura and without status migrainosus, not intractable (Primary Dx); Encounter for contraceptive management, unspecified type; Palpitations; Leukopenia, unspecified type 01/02/2025 Travel 01/01/[address] [facility] [address] [address] Elizabeth Workman FNP Palpitations (Primary Dx); Leukopenia, unspecified type 01/01/2025 Telephone [facility] [address] [place] [phone] Elizabeth Workman FNP Chart Prep 12/25/2024 9:20 AM EDT [facility] [address] [address] Aaron Shah MD Migraine with aura and without status migrainosus, not intractable (Primary Dx); Vonnie-Payne virus seropositivity; Acute URI 12/25/2024 Travel 12/23/2024 Results Follow-Up [facility] [address] [address] Elizabeth Workman FNP TSH W/Reflex to FT4 12/21/[address] [facility] [address] [address] Aaron Shah MD 12/20/2024 3:40 PM EDT [facility] [address] [address] Aaron Shah MD Polyarthralgia (Primary Dx); Chronic fatigue 12/20/2024 Travel from Last 3 Months Immunizations Immunization Administration Dates Next Due DTaP 08/22/2009,10/22/2006 DTaP / Hep B / IPV 2005,2005, 006 HPV 9-Valent 05/28/2017,10/28/2016 Hep A, ped/adol, 2 dose 01/11/2007,07/05/2006 Hep B, Adolescent or Pediatric 02/08/2024,2005 Hib (HbOC) 10/22/2006, 6,2005,08/19 IPV 08/22/2009 Influenza injectable quadriv [...] Mass Index 23.6 03/08/2025 10:19 AM EDT Plan of Treatment Upcoming Encounters Date Type Department Care Team (Late st Contact Info) Description 03/21/2025 9:30 AM EDT Clinical Support [facility] [address] [place] [address] Health Maintenance Due Date Last Done Comments Fluoride Varnish 02/26/2013 08/26/2012 Alcohol/Substance Use Screening 2017 Meningococcal B Vaccine (1 of 2 - Standard) 2021 COVID-19 Vaccine (4 - season) 2025 09/19/2021, 11/11/2020, 10/21/2020 Influenza Vaccine (#1) 2025 , 04/17/2020, 05/28/2017, Additional history exists Family Planning (PISQ) 10/19/2025 10/19/2024 Chlamydia and Gonorrhea Screening 11/21/2025 11/21/2024, 01/14/2024, 10/11/2023 Disability Screening 01/02/2026 01/02/2025 SDOH Screening 01/02/2026 01/02/2025 Depression Screening 02/23/2026 02/23/2025, 02/24/20 25 Tobacco Screening 03/08/2026 03/08/2025 DTaP/Tdap/Td Vaccines (7 - Td or Tdap) [...] Name Priority Date/Time Associated Diagnosis Comments POCT COVID-19 AG ADDISON ID NOW Routine 03/08/2025 10:31 AM EDT Viral illness POCT INFLUENZA A (ID NOW RAPID MOLECULAR) Routine 03/08/2025 10:31 AM EDT Viral illness POCT INFLUENZA B (ID NOW RAPID MOLECULAR) Routine 03/08/2025 10:31 AM EDT Viral illness POCT RAPID STREP A Routine 03/08/2025 10 :31 AM EDT Viral illness POCT INFLUENZA A (ID NOW RAPID MOLECULAR) Routine 02/15/2025 9:05 AM EDT Acute URI POCT INFLUENZA B (ID NOW RAPID MOLECULAR) Routine 02/15/2025 9:04 AM EDT Acute URI POC ADDISON ID NOW STREP A Routine 02/15/2025 9:02 AM EDT Acute URI POCT RAPID COVID ANTIGEN Routine 02/15/2025 9:02 AM EDT Acute URI ECG 12-LEAD Routine 02/02/2025 12:13 PM EDT Chest pain, unspecified type HIGH SENSITIVITY TROPONIN I Routine 02/02/2025 11:28 AM EDT HCG, TOTAL, QN Routine 02/02/2025 11:28 AM EDT BASIC METABOLIC PANEL Routine 02/02/2025 11:28 AM EDT CBC WITH AUTO DIFFERENTIAL Routine 02/02/2025 11:28 AM EDT URINALYSIS, COMPLETE, WITH REFLEX TO CULTURE Routine 02/02/2025 11:28 AM EDT COVID-19 ID NOW (ADDISON) Routine 02/02/2025 10:41 AM EDT INFLUENZA A B2 ID NOW (ADDISON) Routine 02/02/2025 10:41 AM EDT STREP A NUCLEIC ACID Routine 02/02/2025 10:41 AM EDT XR CHEST 2 VIEWS Routine 02/02/2025 10:3 8 AM EDT POCT , URINE Routine 01/02/2025 [...] 12/21/2024 11:53 AM EDT Polyarthralgia Chronic fatigue VONNIE PAYNE VIRUS ANTIBODY PANEL Routine 12/21/2024 11:53 [...] HEMOGLOBIN Routine 12/20/2024 4:26 PM EDT Polyarthralgia HEPATITIS C AB W/REFL TO HCV RNA, QN, PCR Routine 11/21/2024 11:08 AM EDT Routine screening for STI (sexually transmitted infection) HIV 1/2 ANTIGEN/ANTIBODY, FOURTH GENERATION W/RFL Routine 11/21/2024 11:08 AM EDT Routine screening for STI (sexually transmitted infection) CHLAMYDIA/N. GONORRHOEAE RNA, TMA, UROGENITAL Routine 11/21/2024 11:08 AM EDT Routine screening for STI (sexually transmitted infection) TOPICAL APPLICATION OF FLUORIDE VARNISH Routine 08/26/2012 12:00 AM EDT from Last 3 Months or Most Recently Relevant to Health Maintenance Results * Influenza B (ID NOW Rapid Molecular) (03/08/2025 10:31 AM EDT) Only the most recent of3 resultswithin the time period is included. Influenza B Negative Negative, Indeterminate [facility] Swab 03/08/2025 10:3 1 AM EDT us Ad Cao MD POINT OF CARE TEST ENTER/EDIT O RDERABLES Final Result Performing Organization Address [facility] Co de Phone Number [facility] [address] [place] [phone] * Influenza A (ID NOW Rapid Molecular) (03/08/2025 10:31 AM EDT) Only the most recent of3 resultswithin the time period is included. Influenza A Negative Negative, Indeterminate [facility] Swab 03/08/2025 10:3 1 AM EDT us Ad Cao MD POINT OF CARE TEST ENTER/EDIT O RDERABLES Final Result Performing Organization Address [facility] Co de Phone Number [facility] [address] [place] [phone] * POCT COVID-19 Ag Addison ID NOW (03/08/2025 10:31 AM EDT) Coronavirus Antigen PCR Negative Negative, Indeterminate, None Detected, Invalid, Specimen unsatisfactory for evaluation, Weakly Positive, 2+ Swab 03/08/2025 10:3 1 AM EDT us Ad Cao MD POINT OF CARE TEST ENTER/EDIT O RDERABLES Final Result * POCT rapid strep A manually resulted (03/08/2025 10:31 AM EDT) Only the most recent of2 resultswithin the time period is included. [facility] Rapid Strep A Screen Negative Negative, None Detected [facility] Swab 03/08/2025 10:3 1 AM EDT Ad Cao MD POINT OF CARE TEST ENTER/EDIT O RDERABLES Final Result [facility] [address] [place] [phone] * POCT Rapid Strep A ADDISON ID NOW (02/15/2025 9:02 AM EDT) [facility] Rapid Strep A Screen Negative Negative, None Detected QC Media Lot # [id number] Lot# Expiration Date Swab 02/15/2025 9:02 AM EDT Liza Barrett DO POINT OF CARE TEST ENTER/MATY T ORDERABLES Final Result * POCT Rapid Covid-19 BinaxNOW (02/15/2025 9:02 AM EDT) Only the most recent of2 resultswithin the time period is included. [facility] Rapid COVID Ag Negative QC Media Lot # [id number] Lot# Expiration Date Swab 02/15/2025 9:02 AM EDT Liza Barrett DO POINT OF CARE TEST ENTER/MATY T ORDERABLES Final Result * ECG 12 lead (02/02/2025 12:13 PM EDT) Narrative Jace Goodman MD - 02/02/2025 12:13 PM EDT EKG with diffuse, mildly elevated concave-shaped ST segments (possibly from benign early repolarization given young age) us Jace Goodman MD ECG ORDERABLES Final Result * High Sensitivity Troponin I (02/02/2025 11:28 AM EDT) TROPONIN I HIGH SENSITIVITY <2.7 <3.5 - 17.0 ng/L [facility] Comment:The Addison high sens itivity Troponin-I results should beused in conjunction with other diagnostic information suchas ECG, clinical observations and information, and patientsymptoms to aid in the diagnosis of [place]. 02/02/2025 11:2 8 AM EDT 02/02/2025 11:38 AM EDT us Generic External Data Provider LAB BLOOD ORDERAB LES Final Result [facility] [address] [place] [phone] * (ABNORMAL) Urinalysis, Complete, with Reflex to Culture (02/02/2025 11:28 AM EDT) Color Urine Yellow [facility] Appearance Urine Clear [facility] PH 6.0 5.0 - 9.0 [facility] Glucose Urine UA Negative Negative mg/dL [facility] Urine Blood Trace(A) Negative [facility] Specific [place] - Urine 1.015 1.005 - 1.025 [facility] Urine Protein Negative Neg-Trace mg/dL [facility] Urine Ketones Negative Negative mg/dL [facility] Nitrite Urine Negative Negative [facility] Leukocyte Esterase Urine Trace(A) Negative [facility] RBC Urine 3-5(A) 0 - 2 /HPF [facility] Urine WBC 0-5 0 - 5 /HPF [facility] Urine Squamous Epithelial Cell 3-5 0 - 2 /HPF [facility] Urine Bacteria Trace None Seen [facility] Hyaline Casts, Urine 0-2 0 - 2 /LPF [facility] 02/02/2025 11:2 8 AM EDT 02/02/2025 11:32 AM EDT Narrative [facility] - 02/02/2025 11:41 AM EDT [id number], Clean Catch us Generic External Data Provider LAB URINE ORDERAB LES Final Result [facility] [address] [place] [phone] * CBC auto differential (02/02/2025 11:28 AM EDT) Only the most recent of2 resultswithin the time period is included. White Blood Count 5.1 4.8 - 10.8 X10*3/uL [facility] Red Blood Count 4.57 4.20 - 5.50 X10*6/uL [facility] Hemoglobin 13.0 12.0 - 16.0 g/dl [facility] Hematocrit 37.7 37.0 - 47.0 % [facility] Mean Corpuscular Volume 82.5 80.0 - 98.0 fL [facility] Mean Corpuscular Hemoglobin 28.4 27.0 - 33.0 pg [facility] Mean Corpuscular HGB Conc 34.5 31.0 - 35.0 g/dl [facility] Red Cell Distribution Width 12.7 11.0 - 16.0 % [facility] Platelet Count 289 160 - 400 X10*3/uL [facility] Mean Platelet Volume 10.0 9.4 - 12.3 fL [facility] Neutrophils Percent Auto 56.4 45 - 73 % [facility] Imm Gran Pct Auto 0.2 0.0 - 0.4 % [facility] Lymphocytes Percent Auto 28.4 20 - 40 % [facility] Monocytes Percent Auto 10.5 2 - 11 % [facility] Eosinophils Percent Auto 3.9 0 - 4 % [facility] Basophils Percent Auto 0.6 0 - 2 % [facility] NRBC Pct Auto 0.0 0.0 - 0.2 /100WBC [facility] Neutrophils Absolute Auto 2.9 2.0 - 8.3 x10*3/uL [facility] Imm Gran Abs Auto 0.01 0.00 - 0.03 X10*3/uL [facility] Lymphocytes Absolute Auto 1.4 1.2 - 4.9 X10*3/uL [facility] Monocytes Absolute Auto 0.5 0.1 - 1.2 X10*3/uL [facility] Eosinophils Absolute Auto 0.2 0.0 - 0.4 X10*3/uL [facility] Basophils Absolute Auto 0.0 0.0 - 0.2 X10*3/uL [facility] NRBC Abs Auto 0.000 0.0 - 0.012 X10*3/uL [facility] 02/02/2025 11:2 8 AM EDT 02/02/2025 11:32 AM EDT us Generic External Data Provider LAB BLOOD ORDERAB LES Final Result Performing Organization Address City/State/[facility] Co de Phone Number [facility] [address] [place] [phone] * hCG, Total, Quantitative (02/02/2025 11:28 AM EDT) HCG Quantitative <2 mIU/mL [facility] Comment:Weeks post LMP Appro ximate hCG(Last Menstrual Period) Range (mIU/ml)3 - 4 weeks 9 - 1304 - 5 weeks 75 - 2,6005 - 6 weeks 850 - 20,8006 - 7 weeks 4000 - 100,2007 - 12 weeks 11,500 - 289,13392 - 16 weeks 18,300 - 137,88166 - 29 weeks (2nd trimester) 1,400 - 53,14085 - 41 weeks (3rd trimester) 940 - 60,000The Addison B- hCG assay is used for the early detection ofpregnancy; it cannot be used to diagnose any conditionunrelated to . If a B-hCG level is not supportedby the clinical evidence, results should be confirmed by analternative method (qualitative urine hCG, for example). 02/02/2025 11:2 8 AM EDT 02/02/2025 11:32 AM EDT us Generic External Data Provider LAB BLOOD ORDERAB LES Final Result Performing Organization Address City/[facility]/ZIP Co de Phone Number [facility] [address] [place] [phone] * (ABNORMAL) Basic Metabolic Panel (02/02/2025 11:28 AM EDT) Sodium 142 135 - 145 mmol/L [facility] Potassium 3.5 3.3 - 5.1 mmol/L [facility] Chloride 112(H) 96 - 108 mmol/L [facility] Carbon Dioxide 24 22 - 29 mmol/L [facility] Anion Gap 10(L) 12 - 20 [facility] Urea Nitrogen (BUN) 10 9 - 16 mg/dL [facility] Creatinine, Serum 0.62 0.5 - 1.4 mg/dL [facility] Creatinine Clr Calc Pharmacy 120.7 [facility] Comment:Provided height and weight: 160.02 cm,55.338 kg.eGFR (calculated from the MDRD study equation) and eCrCl(calculated from the Cockcroft-Gault equation) are based ondifferent parameters and may not yield comparable results.If eCrCl result is absurd, please check patient'sheight/weight. Estimated Glomerular Filt Rate >60 [facility] Comment:Chronic Kidney Disea se: Estimated GFR < 60 mL/min/1.14m9Scikxi Kidney Disease: Estimated GFR < 15 mL/min/1.73m2 Glucose 95 60 - 115 mg/dL [facility] Calcium 8.8 8.4 - 10.2 mg/dL [facility] 02/02/2025 11:2 8 AM EDT 02/02/2025 11:32 AM EDT us Generic External Data Provider LAB BLOOD ORDERAB LES Final Result Performing Organization Address City/[facility]/ZIP Co de Phone Number [facility] [address] [place] [phone] * Influenza A B2 ID NOW (Addison) (02/02/2025 10:41 AM EDT) IDNOW SERIAL# [id number] [facility] Influenza A Negative Negative [facility] Influenza B2 Negative Negative [facility] Influenza A B2 Note See Note [facility] Comment:The Addison ID NOW In [...] ORDERABLES Final Result Performing Organization Address [facility]/ZIP Co de Phone Number [facility] [address] [place] [phone] * Strep A Nucleic Acid (02/02/2025 10:41 AM EDT) IDNOW SERIAL# [id number] [facility] Strep A Nucleic Acid Negative Negative [facility] Comment:All test results mus t [...] ORDERABLES Final Result Performing Organization Address [facility] Co de Phone Number [facility] [address] [place] [phone] * COVID-19 ID NOW (ADDISON) (02/02/2025 10:41 AM EDT) IDTERRAW SERIAL# [id number] [facility] COVID-19 TEST Negative Negative [facility] COVID-19 NOTE See Note [facility] Comment: Results are for the identification of SARS-CoV2 RNA. TheSARS-CoV2 RNA is generally detectable in respiratory samplesduring the acute phase of infection. Positive results areindicative of the presence of SARS-CoV-2 RNA; clinicalcorrelation with patient history and other diagnosticinformation is necessary to determine patient infectionstatus. Positive results do not rule out bacterial infectionor co- infection with other viruses.Testing facilities within the [facility] and itsberger hospitalritories are required to report all positive [...] LAB MOLECULAR MANDA GNOSTICS ORDERABLES Final Result [facility] [address] [place] [phone] * XR Chest 2 Views (02/02/2025 10:38 AM EDT) Anatomical Region Laterality Modality Chest Radiographic Freda ging 02/02/2025 10:3 8 AM EDT Narrative 02/02/2025 11:44 AM EDT [address] [address] XRay Report Signed Patient: Kip Govea MR#: [id number] : 2005 Acct:[id number] Age/Sex: 19 / F ADM Date: 02/02/25 Loc: .ED Attending Dr: Ordering Physician: Marielena Ambriz DO Date of Service: 02/02/25 Procedure(s): XR chest 2V Accession Number(s): [id number] cc: Marielena Ambriz DO; [facility] BALE OPENER EXAMINATION: XR CHEST CLINICAL INFORMATION: cough, fevers COMPARISON: None available. TECHNIQUE: 2 views of the chest were obtained. FINDINGS: No significant abnormality is noted involving the heart, lungs, mediastinum, bony thorax or soft tissues. XR/XR chest 2V IMPRESSION: No acute disease Electronically signed by: Mark kOeefe MD 02/02/2025 11:41 AM EDT Dictated By: Mark Okeefe MD Signed By: <Electronically signed by Mark Okeefe MD in OV> 02/02/25 1141 DD/ 1038 TD/TT: 02/02/25 1130 Safemaker: Procedure Note Donotuseinterpreter, Image - 02/02/[address] [address] XRay Report Signed Patient: Kip GoveaMR#: [id number] : 2005cct:[id number] Age/Sex: 19 / FADM Date: 02/02/25 Loc: .ED Attending Dr: Ordering Physician: Marielena Ambriz DO Date of Service: 02/02/25 Procedure(s): XR chest 2V Accession Number(s): [id number] cc: Marielena Ambriz DO; [facility] BALE OPENER EXAMINATION: XR CHEST CLINICAL INFORMATION: cough, fevers COMPARISON: None available. TECHNIQUE: 2 views of the chest were obtained. FINDINGS: No significant abnormality is noted involving the heart, lungs, mediastinum, bony thorax or soft tissues. XR/XR chest 2V IMPRESSION: No acute disease Electronically signed by: Mark Okeefe MD 02/02/2025 11:41 AM EDT RP Dictated By: Mark Okeefe MD Signed By: <Electronically signed by Mark Okeefe MD in OV> 02/02/25 1141 DD/ 1038 TD/TT: 02/02/25 1130 Safemaker: [facility] External Provider IMG XR PROCEDURES Edited Result - Final * POCT Urine (01/02/2025 10:11 AM EDT) Preg Test, Ur Negative Negative, Indeterminate, None Detected, Invalid, Specimen unsatisfactory for evaluation, Weakly Positive, 2+ QC Media Lot # [id number] Lot# Expiration Date [id number] Urine 01/02/2025 10:1 1 AM EDT [facility] [employer]ENER POINT OF CARE TEST ENTER/EDIT ORDERABLES Final Result * Other Reference Test - Misc (12/21/2024 11:53 AM EDT) 12/21/2024 11:5 3 AM EDT 12/21/2024 11:53 AM EDT Narrative [facility] - 12/27/2024 11:24 AM EDT CODE 33339 Parvovirus B19 DNA, Qualitative, Real-Time PCR Aaron Shah MD LAB BLOOD ORDERABLES Final Resul t [facility] [address] [place] [phone] * Vitamin D, 25-Hydroxy, Total, Immunoassay (12/21/2024 11:53 AM EDT) Vitamin D 25-OH Total 35.0 >30 ng/mL [facility] Comment: Health Based Reference Values*< 20 ng/mL Rnpvdquea69-66 ng/mL Insufficient> 30 ng/mL Sufficient*Meredith SIMMONS. N [...] ORDERABLES Final Resul t Performing Organization Address City/[facility]/ZIP Co de Phone Number [facility] [address] [place] [phone] * TSH with Reflex to Free T4 (12/21/2024 11:53 AM EDT) Only the most recent of2 resultswithin the time period is included. TSH reflex Free T4 0.83 0.32 - 4.0 uIU/mL [facility] Blood Venous blood specimen / Unknown 12/21/2024 11:53 AM EDT 12/21/2024 11:53 AM EDT us Aaron Shah MD LAB BLOOD ORDERABLES Final Resul t [facility] [address] [place] [phone] * Lyme Disease Ab with Reflex to Blot (IgG, IgM) (12/21/2024 11:53 AM EDT) [facility] Lyme Antibody Screen <0.90 index [facility] Comment:Index Interpretation ----- < 0.90 Negative [...] when erythemamigrans is apparent.THIS TEST WAS PERFORMED AT:[facility] [place] [phone] NOEL MD Lyme Blot [facility] 12/21/2024 11:5 3 AM EDT 12/21/2024 11:53 AM EDT us Aaron Shah MD LAB BLOOD ORDERABLES Final Resul t [facility] [address] [place] [phone] [phone] * (ABNORMAL) Vonnie-Payne Virus Antibody Panel (12/21/2024 11:53 AM EDT) [facility] EBV Viral Capsid Antigen (VCA) Antibody IgG 537.00(A) U/mL [facility] Comment:U/mL Interpretation ---- <18.00 Negative 18.00-21.99 Equivocal >21.99 Positive EBV Viral Capsid Antigen (VCA) Ab IgM <36.00 U/mL [facility] Comment:U/mL Interpretation ---- <36.00 Negative 36.00-43.99 Equivocal >43.99 Positive EBV Nuclear Antigen (EBNA) Antibody IgG >600.00(A ) U/mL [facility] Comment:U/mL Interpretation ---- <18.00 Negative 18.00-21.99 Equivocal >21.99 Positive Interpretation: SEE NOTE [facility] Comment:Suggestive of a past Vonnie-Payne virus infection.In infants, a similar pattern may occur as a resultof passive maternal transfer of antibody.THIS TEST WAS PERFORMED AT:[facility] [place] [phone] NOEL MD Blood Venous blood specimen / Unknown 12/21/2024 11:53 AM EDT 12/21/2024 11:53 AM EDT us Aaron Shah MD LAB BLOOD ORDERABLES Final Resul t Performing Organization Address [facility]/ZIP Co de Phone Number [facility] [address] [place] [phone] * Rheumatoid Factor (12/21/2024 11:53 AM EDT) Rheumatoid Factor <13.0 <15.0 IU/mL [facility] Blood Venous blood specimen / Unknown 12/21/2024 11:53 AM EDT 12/21/2024 11:53 AM EDT us Aaron Shah MD LAB BLOOD ORDERABLES Final Resul t Performing Organization Address [facility] Co de Phone Number [facility] [address] [place] [phone] * RICHI Screen,IFA, with Reflex to Titer and Pattern (12/21/2024 11:53 AM EDT) Anti Nuclear Antibody Screen NEGATIVE NEGATIVE [facility] Comment:RICHI IFA is a first l [...] clinicallysuspected inflammatory myopathies.AC-0: NegativeInternational Consensus on RICHI Patterns(https://doi.org/10.1515/sbvb-0597-5181)For additional information, please refer [email or web address].[email or web address]/faq/[email or web address](This link is being provided for informational/educational purposes only.)THIS TEST WAS PERFORMED AT:[facility] [place] [phone] NOEL MD RICHI Titer TNP [facility] RICHI Pattern [facility] RICHI TITER 2 (REF LAB) [facility] RICHI Pattern 2 [facility] RICHI TITER 3 [facility] RICHI PATTERN 3 [facility] Blood Venous blood specimen / Unknown 12/21/2024 11:53 AM EDT 12/21/2024 11:53 AM EDT us Aaron Shah MD LAB BLOOD ORDERABLES Final Resul t Performing Organization Address [facility]/ZIP Co de Phone Number [facility] [address] [place] [phone] * Magnesium (12/21/2024 11:53 AM EDT) Magnesium 1.8 1.6 - 2.6 mg/dL [facility] Blood Venous blood specimen / Unknown 12/21/2024 11:53 AM EDT 12/21/2024 11:53 AM EDT us Aaron Shah MD LAB BLOOD ORDERABLES Final Resul t Performing Organization Address [facility] Co de Phone Number [facility] [address] [place] [phone] * Hemoglobin A1c (12/21/2024 11:53 AM EDT) Hemoglobin A1c 5.0 <6.0 % [facility] Comment:Hemoglobin A1C Refer ence Range Adults: 4.8 - 6.0 % Non diabetic: < 6.0 % Goal: < 7.0 %Additional Action Suggested: > 8.0 %Note: Hemoglobin A1c results are invalid for patients with abnormal amounts of HbF. Blood transfusions may impact the HbA1c concentration in the patient sample. Estimated Average Glucose 97 mg/dL [facility] Comment:eAG = Estimated ave rage glucose which is %A1C expressed asaverage glucose, using the formula of the U5D-LfbmachDrpufny Glucose study (ADAG), Diabetes Care, Vol.31,#8,2007 Blood Venous blood specimen / Unknown 12/21/2024 11:53 AM EDT 12/21/2024 11:53 AM EDT us Aaron Shah MD LAB BLOOD ORDERABLES Final Resul t Performing Organization Address City/[facility]/ZIP Co de Phone Number [facility] [address] [place] [phone] * Vitamin B12 (12/21/2024 11:53 AM EDT) Pathologist [facility] Vitamin B12 384 200 - 900 pg/mL [facility] Comment:NORMAL 200-900 PG/ML INDETERMINATE 160-199 PG/ML DEFICIENT < 160 PG/ML Blood Venous blood specimen / Unknown 12/21/2024 11:53 AM EDT 12/21/2024 11:53 AM EDT us Aaron Shah MD LAB BLOOD ORDERABLES Final Resul t Performing Organization Address [facility] Co de Phone Number [facility] [address] [place] [phone] * (ABNORMAL) Comprehensive Metabolic Panel (12/21/2024 11:53 AM EDT) Pathologist [facility] Sodium 140 135 - 145 mmol/L [facility] Potassium 3.5 3.3 - 5.1 mmol/L [facility] Chloride 109(H) 96 - 108 mmol/L [facility] Carbon Dioxide 26 22 - 29 mmol/L [facility] Anion Gap 9(L) 12 - 20 [facility] Urea Nitrogen (BUN) 9 9 - 16 mg/dL [facility] Creatinine, Serum 0.61 0.5 - 1.4 mg/dL [facility] Estimated Glomerular Filt Rate >60 [facility] Comment:Chronic Kidney Disea se: Estimated GFR < 60 mL/min/1.46m9Nrzwub Kidney Disease: Estimated GFR < 15 mL/min/1.73m2 Glucose 123(H) 60 - 115 mg/dL [facility] Calcium 9.2 8.4 - 10.2 mg/dL [facility] Bilirubin, Total 0.7 0.0 - 1.0 mg/dL [facility] Aspartate Amino Transferase 24 5 - 31 U/L [facility] Alanine Aminotransferase 15 0 - 31 U/L [facility] Total Protein 7.3 6.5 - 8.0 g/dL [facility] Albumin Level 4.4 3.5 - 5.0 g/dL [facility] Alkaline Phosphatase 76 39 - 117 U/L [facility] Blood Venous blood specimen / Unknown 12/21/2024 11:53 AM EDT 12/21/2024 11:53 AM EDT us Aaron Shah MD LAB BLOOD ORDERABLES Final Resul t [facility] [address] [place] [phone] * POCT Hemoglobin (12/20/2024 4:26 PM EDT) Hemoglobin 13.7 12.0 - 15.0 Blood 12/20/2024 4:26 PM EDT us Aaron Shah MD POINT OF CARE TEST ENTER/EDIT OR DERABLES Final Result * Hepatitis C Antibody with Reflex to HCV, RNA, Quantitative, Real-Time PCR (11/21/2024 11:08 AM EDT) Hepatitis C Antibody Nonreactive Nonreactive [facility] Comment:Antibodies to HCV no t detected; does not exclude early acuteHCV infection. Blood Venous blood specimen / Unknown 11/21/2024 11:08 AM EDT 11/21/2024 1:22 PM EDT [facility] LAB BLOOD ORDERABLES Final Re sult [facility] [address] [place] [phone] * Chlamydia/N. Gonorrhoeae RNA, TMA, Urogenitial (11/21/2024 11:08 AM EDT) [facility] CT PCR NOT DETECTED Not Detect. [facility] Comment:A not detected test result does [...] psychologicalconsequences. NG PCR NOT DETECTED Not Detect. [facility] Comment:A not detected test result does [...] AM EDT 11/21/2024 1:06 PM EDT Narrative [facility] - 11/21/2024 3:00 PM EDT Urine [facility] LAB MICROBIOLOGY - GENERAL OR DERABLES Final Result Performing Organization Address [facility]/ZIP Co de Phone Number [facility] [address] [place] [phone] * HIV-1/2 Antigen and Antibodies, Fourth Generation, with Reflexes (11/21/2024 11:08 AM EDT) HIV AB/AG Nonreactive Nonreactive [facility] Comment:HIV-1 p24 Ag and/or HIV-1/HIV-2 Ab not detected.A test result that is nonreactive does not exclude thepossibility of exposure to or infection with HIV-1 and/orHIV-2. Nonreactive results in this assay for individualswith prior exposure to HIV-1 and/or HIV-2 may be due toantigen and antibody levels that are below the limit ofdetection of this assay.The [employer] HIV Ag/Ab Combo assay result andsupplemental assay results should be interpreted inconjunction with the patient's clinical presentation,history and other laboratory results. If the results areinconsistent with clinical evidence, additional testing issuggested to confirm the result. Blood Venous blood specimen / Unknown 11/21/2024 11:08 AM EDT 11/21/2024 1:22 PM EDT [facility] LAB BLOOD ORDERABLES Final Re sult Performing Organization Address [facility]/ZIP Co de Phone Number [facility] [address] [place] [address] [phone] from Last 3 Months or Most Recently Relevant to Health Maintenance Insurance [facility] , [address] [place] [address] Care Teams Buildings Painter Relationship Specialty Start Date End Date Elizabeth Workman FNP [address] [place] [phone] PCP - General Family Medicine 12/24/23
[2025-03-09 09:27] LABS: Chlamydia pneumoniae PCR Not Detected (Not Detect.); Coronavirus 229E PCR Not Detected (Not Detect.); Coronavirus HKU1 PCR Not Detected (Not Detect.); Coronavirus NL63 PCR Not Detected (Not Detect.); Coronavirus OC43 PCR Not Detected (Not Detect.); RSV PCR Not Detected (Not Detect.); Rhino/Enterovirus PCR Not Detected (Not Detect.)
[2025-03-09 09:56] LABS: SARS-CoV-2 PCR Not Detected (Not Detect.)
[2025-03-09 09:57] LABS: Influenza A H1 PCR Not Detected (Not Detect.); Influenza A H1-2009 PCR Not Detected (Not Detect.); Influenza A H3 PCR Not Detected (Not Detect.)
== END 2025-03-08 18:18 | disposition home or self-care (01) ==
LOC: HO.HHCLNP 18:17
PROVIDERS: Visit Provider Pediatrics
DX: B34.9 Viral infection, unspecified (principal)
CPT/HCPCS: 87633

== ENCOUNTER 2025-05-17 10:55 | Outpatient (REF) | payer OTHER, SELFPAY ==
[2025-05-17 12:04] LABS: Bacterial Vaginosis PCR POSITIVE (Negative); Candida Group PCR DETECTED (Not Detect); Candida glab krusei PCR NOT DETECTED (Not Detect); Trichomonas vaginalis PCR NOT DETECTED (Not Detect)
[2025-05-17 12:36] LABS: CT PCR Urine NOT DETECTED (Not Detect.); NG PCR Urine NOT DETECTED (Not Detect.)
== END 2025-05-17 10:56 | disposition home or self-care (01) ==
LOC: HO.LNP 10:55
PROVIDERS: Visit Provider Emergency Medicine
DX: Z20.2 Contact with and (suspected) exposure to infections with a predominantly sexual mode of transmission (principal); N89.8 Other specified noninflammatory disorders of vagina
CPT/HCPCS: 81515; 87491; 87591

== ENCOUNTER 2025-05-17 10:59 | Outpatient (REF) | payer OTHER, SELFPAY | END 2025-05-17 11:00 | LOC: HO.LNP 10:59 | PROVIDERS: Visit Provider Emergency Medicine | DX: R30.0 Dysuria (principal) | CPT/HCPCS: 87086 ==

== ENCOUNTER 2025-05-21 14:11 | Outpatient (REF) | payer OTHER, SELFPAY ==
--- OUTSIDE RECORDS SUMMARY | 2025-05-16 15:00 | XMS_ITS | Encounter Summary ---
Author Organization [employer] Address [address] [place] [address] Care Team Providers Care Area Secretary Name Role Phone Elizabeth Workman IRON MINER Primary Care Provider [phone] Reason for Visit * Reason Comments Vaginal Discharge Encounter Details Date Type Department Care Team ([facility] st Contact Info) Description 05/16/2025 3:00 PM EST Office Visit [facility] [address] [place] [address] Aaron Shah MD [address] [place] [address] Vaginal discharge (Primary Dx); Dysuria Social History Tobacco Use Types Packs/Day Years [...] Sign Reading Time Taken Comments Blood Pressure 120/72 05/16/2025 1:39 PM EST Pulse 88 05/16/2025 1:39 PM EST Temperature 36.7 C (98 F) 05/16/2025 1:39 PM EST Respiratory Rate 17 05/16/2025 1:39 PM EST Oxygen Saturation - - Inhaled Oxygen Concentration - - Weight - - Height - - Body Mass Index - - documented in this encounter Progress Notes * Aaron Shah MD - 05/16/2025 3:00 PM EST Subjective Patient ID: Kip Govea is a 19 y.o. female. HPI Kip has had a 1 month h/o intermittent urine odor, vaginal discharge. 2 days ago had 1 episode of burning on urination. Denies fever, chills, n/v, abdominal or flank pain. Lives with parents, brother and sister. LMP=irreg due to Depo. Had unprotected intercourse several weeks ago. Never smoked. Works at [facility]. Patient Active Problem List Diagnosis Date Noted Moderate major depression (CMS/HCC) (HCC) 01/22/2025 Migraine with aura and without status migrainosus, not intractable 11/07/2024 Anxiety and depression 10/12/2024 Amenorrhea 05/25/2024 Food allergy 03/11/2023 Chronic pain of left knee 03/11/2023 Environmental allergies 11/05/2017 The following portions of the chart were reviewed this encounter and updated as appropriate: Tobacco Allergies Meds Problems Med Hx Surg Hx Fam Hx Review of Systems Constitutional: Negative for fever. Respiratory: Negative for shortness of breath. Cardiovascular: Negative for chest pain. Gastrointestinal: Negative for abdominal pain. Genitourinary: Positive for dysuria and vaginal discharge. Negative for flank pain. Skin: Negative for rash. Neurological: Negative for headaches. Objective Physical Exam Vitals and nursing note reviewed. Constitutional: Appearance: Normal appearance. HENT: Head: Normocephalic and atraumatic. Nose: Nose normal. Eyes: Conjunctiva/sclera: Conjunctivae normal. Pupils: Pupils are equal, round, and reactive to light. Pulmonary: Effort: Pulmonary effort is normal. Abdominal: General: Abdomen is flat. Palpations: Abdomen is soft. Tenderness: There is no abdominal tenderness. There is no right CVA tenderness or left CVA tenderness. Skin: General: Skin is warm and dry. Neurological: Mental Status: She is alert. Gait: Gait is intact. Psychiatric: Mood and Affect: Mood and affect normal. Behavior: Behavior normal. Procedures Assessment/Plan Diagnoses and all orders for this visit: Vaginal discharge Self vaginal swab: CT/GC per PCR and BV panel pending. Wet mount: pH 5 . Microscopy: no clue cells; no trichomonads. MICHELET prep: no Hortensia. Will call pt with lab test results. Advised to always have partner use a condom. She did not need a supply. Discussed doing STI blood tests. Rtc if not improving. - Bacterial Vaginosis - Chlamydia/Trichomonas/Neisseria gonorrhoeae, PCR, Urine Dysuria UCG neg. U/a: + blood, otherwise neg. Urine C&S pending. Will call pt with results. - POCT , urine manually resulted - POCT urinalysis dipstick manually resulted (CPT 19987) - Culture, Urine, Routine documented in this encounter Plan of Treatment Upcoming Encounters Date Type Department Care Team (Late st Contact Info) Description 06/06/2025 9:30 AM EST Clinical Support [facility] [address] [place] [address] 07/04/2025 9:00 AM EST Office Visit [facility] [address] [place] [address] Jacinta, Elizabeth, IRON MINER [address] [place] [address] documented as of this encounter Procedures Procedure Name Priority Date/Time Associated Diagnosis Comments POCT , URINE Routine 05/16/2025 1:42 PM EST Dysuria POCT URINALYSIS DIPSTICK Routine 05/16/2025 1:42 PM EST Dysuria CULTURE, URINE, ROUTINE Routine 05/16/2025 1:42 PM EST Dysuria CHLAMYDIA/TRICHOMONA S/NEISSERIA GONORRHOEAE, PCR, URINE Routine 05/16/2025 1:41 PM EST Vaginal discharge BACTERIAL VAGINOSIS PANEL Routine 05/16/2025 1:41 PM EST Vaginal discharge documented in this encounter Results * Culture, Urine, Routine (05/16/2025 1:42 PM EST) Urine Urine specimen obtained by clean catch procedure / Unknown 05/16/2025 1:42 PM EST 05/17/2025 11:00 AM EST Comment:[facility] - 05/19/2025 12:31 PM EST Lactobacillus species Quant 50,000 to 100,000 cfu/mL Specimen Source: Urine clean catch Aaron Shah MD LAB MICROBIOLOGY - GENERAL ORDER SUN Final Result [facility] [address] [place] [phone] * (ABNORMAL) POCT urinalysis dipstick manually resulted (CPT 19342) (05/16/2025 1:42 PM EST) Color, UA Yellow Clarity, UA Clear Glucose, UA Negative Bilirubin, UA Negative Ketones, UA Negative Spec Grav, UA 1.030 Blood, UA Positive(A) Negative, None Detected Comment:moderate pH, UA 5.5 Protein, UA Trace Urobilinogen, UA 0.2 Leukocytes, UA Negative Negative, Rare, Trace, 1+ (17), 2+ (35), 3+ (70), Trace (15) Nitrite, UA Negative Negative, None Detected Urine (Urine, Random) 05/16/2025 1:42 PM EST us Aaron Shah MD POINT OF CARE TEST ENTER/EDIT OR DERABLES Final Result * POCT , urine manually resulted (05/16/2025 1:42 PM EST) Preg Test, Ur Negative Negative, Indeterminate, None Detected, Trace, 3+, Specimen unsatisfactory for evaluation, Weakly Positive, 1+, 2+ Urine 05/16/2025 1:42 PM EST us Aaron Shah MD POINT OF CARE TEST ENTER/EDIT OR DERABLES Final Result * Chlamydia/Trichomonas/Neisseria gonorrhoeae, PCR, Urine (05/16/2025 1:41 PM EST) CT PCR, Urine NOT DETECTED Not Detect. [facility] Comment:A not detected test result does not exclude the possibilityof infection because test results can be affected byimproper specimen collection, concurrent antibiotic therapy,or the number of organisms in the specimen which may bebelow the sensitivity of the test. As with many diagnostictests, results from the Xpert CT/NG assay should beinterpreted in conjunction with other laboratory andclinical data available to the clinician.The Xpert CT/NG assay should not be used for the evaluationof suspected sexual abuse or for other medico-legalindications. Additional testing is recommended in anycircumstance when false positive or false negative resultscould lead to adverse medical, social or psychologicalconsequences. NG PCR, Urine NOT DETECTED Not Detect. [facility] Comment:A not detected test result does not exclude the possibilityof infection because test results can be affected byimproper specimen collection, concurrent antibiotic therapy,or the number of organisms in the specimen which may bebelow the sensitivity of the test. As with many diagnostictests, results from the Xpert CT/NG assay should beinterpreted in conjunction with other laboratory andclinical data available to the clinician.The Xpert CT/NG assay should not be used for the evaluationof suspected sexual abuse or for other medico-legalindications. Additional testing is recommended in anycircumstance when false positive or false negative resultscould lead to adverse medical, social or psychologicalconsequences. Urine (Urine, Random) 05/16/2025 1:41 PM EST 05/17/2025 12:40 PM EST us Aaron Shah MD LAB URINE ORDERABLES Final Resul t [facility] [address] [place] [phone] * (ABNORMAL) Bacterial Vaginosis (05/16/2025 1:41 PM EST) TRICHOMONAS VAGINALIS DETECTION BY PCR NOT DETECTED Not Detect [facility] BACTERIAL VAGINOSIS DETECTION BY PCR POSITIVE(A) Negative [facility] Comment:The BV organism targ ets of the Xpert Xpress MVP test can becommensal in women; Xpert Xpress MVP positive results forbacterial vaginosis should be considered in conjunction withother clinical and patient information to determine thedisease status. Organisms that are not detected by the XpertXpress MVP test have also been reported to be associatedwith BV and aerobic vaginitis.The Xpert Xpress MVP test performance has not been evaluatedin patients under the age of 14. HORTENSIA GROUP DETECTION BY PCR DETECTED(A) Not Detect [facility] Hortensia glab krusei PCR NOT DETECTED Not Detect [facility] Swab Vaginal structure / Unknown 05/16/2025 1:41 PM EST 05/17/2025 12:17 PM EST us Aaron Shah MD LAB MICROBIOLOGY - GENERAL ORDER SUN Final Result [facility] [address] [place] [phone] documented in this encounter Visit Diagnoses Diagnosis Vaginal discharge- Primary Leukorrhea, not specified as infective Dysuria documented in this encounter Additional Health Concerns Assessment Noted Time PHQ-9 Depression Total Score: 6 02/24/20 25 9:11 AM EDT documented as of this encounter Care Teams Area Secretary Relationship Specialty Start Date End Date Elizabeth Workman FNP [address] [place] [phone] PCP - General Family Medicine 12/24/23 documented as of this encounter
[2025-05-21 16:12] LABS: MANUAL DIFF FLAG NO
[2025-05-21 16:14] LABS: Hematocrit 39.7 % (37.0-47.0); Hemoglobin 13.3 g/dl (12.0-16.0); Imm Gran Abs Auto 0.01 X10*3/uL (0.00-0.03); Imm Gran Pct Auto 0.2 % (0.0-0.4); Lymphocytes Absolute Auto 1.9 X10*3/uL (1.2-4.9); Mean Corpuscular HGB Conc 33.5 g/dl (31.0-35.0); Mean Corpuscular Hemoglobin 28.3 pg (27.0-33.0); Mean Corpuscular Volume 84.5 fL (80.0-98.0); NRBC Abs Auto 0.000 X10*3/uL (0.0-0.012); NRBC Pct Auto 0.0 /100WBC (0.0-0.2); Platelet Count 324 X10*3/uL (160-400); Red Blood Count 4.70 X10*6/uL (4.20-5.50); White Blood Count 6.1 X10*3/uL (4.8-10.8)
--- OUTSIDE RECORDS SUMMARY | 2025-05-21 20:38 | XMS_ITS | Encounter Summary ---
Author Organization [employer] Address [address] [place] [address] Care Team Providers Care Metal Tube Cutter Name Role Phone Elizabeth Workman FIRE PREVENTION ENGINEER Primary Care Provider Encounter Details Date Type Department Care Team ([facility] Contact Info) Description 05/21/[address] [facility] [address] [place] [address] Aaron Shah MD [address] [place] [address] Social History Tobacco Use Types Packs/Day Years [...] AM EDT documented as of this encounter Miscellaneous Notes * Telephone Encounter - Aaron Shah MD - 05/21/2025 2:07 PM EST I notified patient of urine C&S results, which grew lactobacillus species. She will return to the lab today to give a urine specimen for repeat urine C&S. I will notify her with those results. documented in this encounter Plan of Treatment Upcoming Encounters Date Type Department Care Team (Late st Contact Info) Description 06/06/2025 9:30 AM EST Clinical Support [facility] [address] [place] [phone] 07/04/2025 9:00 AM EST Office Visit [facility] [address] [place] [phone] Elizabeth Workman FNP [address] [place] [address] documented as of this encounter Visit Diagnoses Not on filedocumented in this encounter Additional Health Concerns Assessment Noted Time PHQ-9 Depression Total Score: 6 02/24/20 25 9:11 AM EDT documented as of this encounter Care Teams Metal Tube Cutter Relationship Specialty Start Date End Date Elizabeth Workman FNP [address] [place] [phone] PCP - General Family Medicine 12/24/23 documented as of this encounter
--- OUTSIDE RECORDS SUMMARY | 2025-05-21 20:38 | XMS_ITS | Encounter Summary ---
Author Organization [employer] Address [address] [place] [address] Care Team Providers Care Earth Observations Chief Scientist Name Role Phone Elizabeth Workman INSTRUCTIONAL MATERIALS DIRECTOR Primary Care Provider [phone] Encounter Details Date Type Department Care Team ([facility] Contact Info) Description 05/21/2025 Orders Only [facility] [address] [place] [address] Aaron Shah MD [address] [place] [address] Dysuria (Primary Dx) Social History Tobacco Use Types Packs/Day Years [...] Description 06/06/2025 9:30 AM EST Clinical Support [address] [address] 07/04/2025 9:00 AM EST Office Visit [address] [address] Elizabeth Workman FNP [address] [place] [address] Scheduled Orders Name Type Priority Associated Diagnoses Orde r Schedule Culture, Urine, Routine Microbiology Routine Dysuria Expected: 05/21/2025 (Approximate), Expires: 05/21/2026 documented as of this encounter Visit Diagnoses Diagnosis Dysuria- Primary documented in this encounter Additional Health Concerns Assessment Noted Time PHQ-9 Depression Total Score: 6 02/24/20 25 9:11 AM EDT documented as of this encounter Care Teams Earth Observations Chief Scientist Relationship Specialty Start Date End Date Elizabeth Workman FNP [address] [place] [phone] PCP - General Family Medicine 12/24/23 documented as of this encounter
--- OUTSIDE RECORDS SUMMARY | 2025-05-21 20:39 | XMS_ITS | Clinical Summary ---
Author Organization [employer] Address [address] [facility] 7t [place] [address] Care Team Providers Care Quality Assurance Advisor Name Role Phone Elizabeth Workman CHEMISTRY ASSOCIATE Primary Care Provider [phone] Allergies Active Allergy Reactions Criticality Noted Date [...] prn itchiness 2 Active Deep Sea Nasal [place] 0.65 % nasal spray USE 1-2 SPRAYS IN EACH NOSTRIL EVERY 2 TO 3 HOURS NEEDED FOR NASAL CONGESTION 2 Active Humidifier miscIndications:N remigio congestion Use as directed 1 each 3 Active diphenhydrAMINE (BENADryl) 25 MG tabletIndications :Food allergy Take 1 tablet (25 mg) by mouth every 6 (six) hours if needed for allergies. 30 tablet 3 Active hydrOXYzine HCl (Atarax) 25 MG tabletIndications [...] per day. 30 capsule 3 5 Active cetirizine (ZyrTEC) 10 MG tablet Take 1 tablet (10 mg) by mouth Once per day. 30 tablet 5 026 Active fluticasone (Flonase) 50 MCG/ACT nasal spray Administer 2 sprays into each nostril Once per day. Shake gently. Before first use, prime pump. After use, clean tip and replace cap. 16 g 5 026 Active pseudoephedrine ER (Sudafed-12 Hour) 120 MG 12 hr tablet Take 1 tablet (120 mg) by mouth every 12 (twelve) hours if needed for congestion. Do not crush, chew, or split. 20 tablet 5 026 Active cetirizine (ZyrTEC) 10 MG tabletIndications :Chronic nasal congestion Take 1 tablet (10 mg) by mouth Once per day. 30 tablet 5 5 026 Active lidocaine (Lidoderm) 5 % patchIndications: Costochondritis, acute Apply 1 patch topically Once per day. Remove & discard patch within 12 hours or as directed by MD. 30 patch 1 5 Active albuterol 108 (90 Base) MCG/ACT inhalerIndication s:Chronic nasal congestion Inhale 2 puffs every 6 (six) hours if needed for wheezing. 18 g 11 5 026 Active metroNIDAZOLE (Flagyl) 500 MG tablet Take 1 tablet (500 mg) by mouth after breakfast and after evening meal for 7 days. 14 tablet 05/18/2025 9:04 AM EST 5 025 Active fluconazole (Diflucan) 150 MG tablet Take 1 tablet (150 mg) by mouth Once per day for 1 dose. 1 tablet 05/18/2025 9:04 AM EST 5 025 Hospital, Clinic, or Other Facility Administered [...] (07/04/2023): Stable with allergy meds prn Encounters Date Type Department Care Team Description 05/21/[address] [address] Aaron Shah MD 05/21/2025 Orders Only [address] [address] Aaron Shah MD Dysuria (Primary Dx) 05/17/2025 Telephone [facility] [address] [place] [address] Aaron Shah MD 05/17/2025 Orders Only [facility] [address] [place] [address] Aaron Shah MD 05/16/2025 3:00 PM EST [facility] [address] [address] Aaron Shah MD Vaginal discharge (Primary Dx); Dysuria 05/16/2025 Travel 03/21/2025 3:00 PM EDT Clinical Support [address] [address] Ariane Magdaleno RN Depo-Provera contraceptive status 03/21/2025 Travel 03/10/2025 Results Follow-Up [address] [address] Ad Cao MD POCT rapid strep A manually resulted, Influenza B (ID NOW Rapid Molecular), Influenza A (ID NOW Rapid Molecular), Additional followed-up results: 2 03/08/2025 10:40 AM EDT Office Visit [facility] [address] [place] [address] Ad Cao MD Viral illness 03/08/2025 Travel 02/23/2025 9:00 AM EDT Office Visit [facility] [address] [place] [address] Elizabeth Workman FNP Costochondritis, acute (Primary Dx); Chronic nasal congestion; Migraine with aura and without status migrainosus, not intractable; Anxiety and depression 02/23/2025 Travel 02/22/2025 Telephone [facility] [address] [place] [address] Elizabeth Workman FNP chart prep from Last 3 Months Immunizations Immunization Administration Dates Next Due DTaP 08/22/2009,10/22/2006 DTaP / Hep B / IPV 2005,2005, 006 HPV 9-Valent 05/28/2017,10/28/2016 Hep A, ped/adol, 2 dose 01/11/2007,07/05/2006 Hep B, Adolescent or Pediatric 02/08/2024,2005 Hib ([facility]) 10/22/2006, 6,2005,08/19 IPV 08/22/2009 Influenza injectable quadriv [...] 17 05/16/2025 1:39 PM EST Oxygen Saturation 95% 03/08/2025 10:19 AM EDT Inhaled Oxygen Concentration - - Weight 60.4 kg (133 lb 3.2 oz) 03/08/2025 10:19 AM EDT Height 160 cm (5' 3 ) 03/08/2025 10:19 AM EDT Body Mass Index 23.6 03/08/2025 10:19 AM EDT Plan of Treatment Upcoming Encounters Date Type Department Care Team (Late st Contact Info) Description 06/06/2025 9:30 AM EST Clinical Support [facility] [address] [place] [address] 07/04/2025 9:00 AM EST Office Visit [facility] [address] [place] [address] [place], Elizabeth, CHEMISTRY ASSOCIATE [address] [place] [address] Health Maintenance Due Date Last Done Comments Fluoride Varnish 02/26/2013 08/26/2012 Alcohol/Substance Use Screening 2017 Meningococcal B Vaccine (1 of 2 - Standard) 2021 COVID-19 Vaccine ( season) 2025 09/19/2021, 11/11/2020, 10/21/2020 Influenza Vaccine (#1) 2025 , 04/17/2020, 05/28/2017, Additional history exists Family Planning (PISQ) 10/19/2025 10/19/2024 Disability Screening 01/02/2026 01/02/2025 SDOH Screening 01/02/2026 01/02/2025 Depression Screening 02/23/2026 02/23/2025, 02/24/20 25 Chlamydia and Gonorrhea Screening 05/16/2026 05/16/2025, 11/21/2024, 01/14/2024, Additional history exists Tobacco Screening 05/16/2026 05/16/2025 DTaP/Tdap/Td Vaccines (7 - Td or Tdap) [...] Procedure Name Priority Date/Time Associated Diagnosis Comments CBC WITH AUTO DIFFERENTIAL Routine 05/21/2025 2:16 PM EST Leukopenia, unspecified type POCT URINALYSIS DIPSTICK Routine 05/16/2025 1:42 PM EST Dysuria POCT , URINE Routine 05/16/2025 1:42 PM EST Dysuria CULTURE, URINE, ROUTINE Routine 05/16/2025 1:42 PM EST Dysuria CHLAMYDIA/TRICHOMONAS /NEISSERIA GONORRHOEAE, PCR, URINE Routine 05/16/2025 1:41 PM EST Vaginal discharge BACTERIAL VAGINOSIS PANEL Routine 05/16/2025 1:41 PM EST Vaginal discharge RESPIRATORY VIRAL PANEL PCR Routine 03/08/2025 10:53 AM EDT Viral illness POCT COVID-19 AG ADDISON ID NOW Routine 03/08/2025 10:31 AM EDT Viral illness POCT INFLUENZA A (ID NOW RAPID MOLECULAR) Routine 03/08/2025 10:31 AM EDT Viral illness POCT INFLUENZA B (ID NOW RAPID MOLECULAR) Routine 03/08/2025 10:31 AM EDT Viral illness POCT RAPID STREP A Routine 03/08/2025 10 :31 AM EDT Viral illness HEPATITIS C AB W/REFL TO HCV RNA, QN, PCR Routine 11/21/2024 11:08 AM EDT Routine screening for STI (sexually transmitted infection) HIV 1/2 ANTIGEN/ANTIBODY, FOURTH GENERATION W/RFL Routine 11/21/2024 11:08 AM EDT Routine screening for STI (sexually transmitted infection) TOPICAL APPLICATION OF FLUORIDE VARNISH Routine 08/26/2012 12:00 AM EDT from Last 3 Months or Most Recently Relevant to Health Maintenance Results * POCT , urine manually resulted (05/16/2025 1:42 PM EST) Preg Test, Ur Negative Negative, Indeterminate, None Detected, Trace, 3+, Specimen unsatisfactory for evaluation, Weakly Positive, 1+, 2+ Urine 05/16/2025 1:42 PM EST Aaron Shah MD POINT OF CARE TEST ENTER/EDIT OR DERABLES Final Result * (ABNORMAL) POCT urinalysis dipstick manually resulted (CPT 90190) (05/16/2025 1:42 PM EST) Color, UA Yellow [...] TEST ENTER/EDIT OR DERABLES Final Result * Culture, Urine, Routine (05/16/2025 1:42 PM EST) Urine Urine specimen obtained by clean catch procedure / Unknown 05/16/2025 1:42 PM EST 05/17/2025 11:00 AM EST Comment:UACC Narrative [facility] - 05/19/2025 12:31 PM EST Lactobacillus species Quant 50,000 to 100,000 cfu/mL Specimen Source: Urine clean catch us Aaron Shah MD LAB MICROBIOLOGY - GENERAL ORDER SUN Final Result Performing Organization Address City/State/[facility] Co de Phone Number [facility] [address] [place] [phone] * Chlamydia/Trichomonas/Neisseria gonorrhoeae, PCR, Urine (05/16/2025 1:41 PM EST) CT PCR, Urine NOT DETECTED Not Detect. [facility] Comment:A not detected test result [...] NG PCR, Urine NOT DETECTED Not Detect. [facility] Comment:A not detected test result [...] MD LAB URINE ORDERABLES Final Resul t Performing Organization Address [facility] Co de Phone Number [facility] [address] [place] [phone] * (ABNORMAL) Bacterial Vaginosis (05/16/2025 1:41 PM EST) TRICHOMONAS VAGINALIS DETECTION BY PCR NOT DETECTED Not Detect [facility] BACTERIAL VAGINOSIS DETECTION BY PCR POSITIVE(A) Negative [facility] Comment:The BV organism targ ets [...] GROUP DETECTION BY PCR DETECTED(A) Not Detect [facility] Hortensia glab krusei PCR NOT DETECTED Not Detect [facility] Swab Vaginal structure / Unknown 05/16/2025 1:41 PM EST 05/17/2025 12:17 PM EST us Aaron Shah MD LAB MICROBIOLOGY - GENERAL ORDER SUN Final Result Performing Organization Address City/[facility]/ZIP Co de Phone Number [facility] [address] [place] [address] [phone] * Respiratory Viral Panel PCR (03/08/2025 10:53 AM EDT) Adenovirus PCR Not Detected Not Detect. [facility] Bordetella pertussis PCR Not Detected Not Detect. [facility] Comment:Interpret results wi th caution. If B. pertussis isspecifically suspected, additional testing using analternate method is recommended. Bordetella parapertussis PCR Not Detected Not Detect. [facility] Chlamydia pneumoniae PCR Not Detected Not Detect. [facility] Coronavirus 229E PCR Not Detected Not Detect. [facility] Coronavirus HKU1 PCR Not Detected Not Detect. [facility] Coronavirus NL63 PCR Not Detected Not Detect. [facility] Coronavirus OC43 PCR Not Detected Not Detect. [facility] SARS-CoV-2 PCR Not Detected Not Detect. [facility] Comment:SARS-CoV-2 not detec clarence by real-time RT-PCR.Note: If clinical suspicion for Sars-CoV-2 is high, continueto maintain precautions and consider repeat testing.Test results should be interpreted in the context ofclinical findings and other laboratory data.Rare polymorphisms exist that could lead to false-negativeor false-positive results. If results do not match theclinical findings, additional testing should be considered.Results reported to [facility].This test has been authorized by the FDA under the EmergencyUse Authorization (EUA) for use by authorized laboratories. Influenza A PCR Not Detected Not Detect. [facility] Influenza A Subtype H1 Not Detected Not Detect. [facility] Influenza A H1-2009 PCR Not Detected Not Detect. [facility] Influenza A Subtype H3 Not Detected Not Detect. [facility] Influenza B PCR Not Detected Not Detect. [facility] Human metapneumovirus PCR Not Detected Not Detect. [facility] Rhino/Enterovirus PCR Not Detected Not Detect. [facility] Mycoplasma pneumoniae PCR Not Detected Not Detect. [facility] Parainfluenza 1 PCR Not Detected Not Detect. [facility] Parainfluenza 2 PCR Not Detected Not Detect. [facility] Parainfluenza 3 PCR Not Detected Not Detect. [facility] Parainfluenza 4 PCR Not Detected Not Detect. [facility] RSV PCR Not Detected Not Detect. [facility] Resp Panel NA Note See Note [facility] Comment:All results must be correlated with clinical findings.Negative results should not be used as the sole basis fordiagnosis, treatment, or other management decisions.A negative result does not exclude the possibility of viralor bacterial infection. Negative results may occur from thepresence of sequence variants in the region targeted by theassay, the presence of inhibitors, an infection caused by anorganism not detected by the panel, or lower respiratorytract infections that are not detected by a nasopharyngealswab specimen. Test results may also be affected byconcurrent antiviral/antibacterial therapy or levels oforganism in the specimen that are below the limit ofdetection for this test.This assay is performed by Multiplexed PCR, utilizing [employer] Film Array. Swab 03/08/2025 10:5 3 AM EDT 03/08/2025 6:17 PM EDT us Ad Cao MD LAB BLOOD ORDERABLES Final Resu lt Performing Organization Address City/[facility]/ZIP Co de Phone Number [facility] [address] [place] [phone] * Influenza B (ID NOW Rapid Molecular) (03/08/2025 10:31 AM EDT) Influenza B Negative Negative, Indeterminate [facility] Swab 03/08/2025 10:3 1 AM EDT us Ad Cao MD POINT OF CARE TEST ENTER/EDIT O RDERABLES Final Result Performing Organization Address [facility]/ZIP Co de Phone Number [facility] [address] [place] [phone] * Influenza A (ID NOW Rapid Molecular) (03/08/2025 10:31 AM EDT) [facility] Influenza A Negative Negative, Indeterminate [facility] Swab 03/08/2025 10:3 1 AM EDT us Ad Cao MD POINT OF CARE TEST ENTER/EDIT O RDERABLES Final Result Performing Organization Address City/[facility]/ZIP Co de Phone Number [facility] [address] [place] [phone] * POCT COVID-19 Ag Addison ID NOW (03/08/2025 10:31 AM EDT) [facility] Coronavirus Antigen PCR Negative Negative, Indeterminate, None Detected, Invalid, Specimen unsatisfactory for evaluation, Weakly Positive, 2+ Swab 03/08/2025 10:3 1 AM EDT us Ad Cao MD POINT OF CARE TEST ENTER/EDIT O RDERABLES Final Result * POCT rapid strep A manually resulted (03/08/2025 10:31 AM EDT) [facility] Rapid Strep A Screen Negative Negative, None Detected [facility] Swab 03/08/2025 10:3 1 AM EDT us Ad Cao MD POINT OF CARE TEST ENTER/EDIT O RDERABLES Final Result Performing Organization Address [facility] Co de Phone Number [facility] [address] [place] [phone] * Hepatitis C Antibody with Reflex to HCV, RNA, Quantitative, Real-Time PCR (11/21/2024 11:08 AM EDT) [facility] Hepatitis C Antibody Nonreactive Nonreactive [facility] Comment:Antibodies to HCV no t detected; does not exclude early acuteHCV infection. Blood Venous blood specimen / Unknown 11/21/2024 11:08 AM EDT 11/21/2024 1:22 PM EDT [facility] LAB BLOOD ORDERABLES Final Re sult Performing Organization Address City/[facility]/ZIP Co de Phone Number [facility] [address] [place] [address] [phone] * HIV-1/2 Antigen and Antibodies, Fourth Generation, with Reflexes (11/21/2024 11:08 AM EDT) [facility] Signature HIV AB/AG Nonreactive Nonreactive [facility] Comment:HIV-1 p24 Ag and/or HIV-1/HIV-2 Ab not detected.A test result that is nonreactive does not exclude thepossibility of exposure to or infection with HIV-1 and/orHIV-2. Nonreactive results in this assay for individualswith prior exposure to HIV-1 and/or HIV-2 may be due toantigen and antibody levels that are below the limit ofdetection of this assay.[employer] HIV Ag/Ab Combo assay result andsupplemental assay results should be interpreted inconjunction with the patient's clinical presentation,history and other laboratory results. If the results areinconsistent with clinical evidence, additional testing issuggested to confirm the result. Blood Venous blood specimen / Unknown 11/21/2024 11:08 AM EDT 11/21/2024 1:22 PM EDT [facility] LAB BLOOD ORDERABLES Final Re sult Performing Organization Address City/[facility]/ZIP Co de Phone Number [facility] [address] [place] [address] [phone] from Last 3 Months or Most Recently Relevant to Health Maintenance Insurance [facility] , [address] [place] [address] Care Teams Quality Assurance Advisor Relationship Specialty Start Date End Date [place] FNP [address] [place] [address] PCP - General Family Medicine 12/24/23
--- OUTSIDE RECORDS SUMMARY | 2025-05-21 20:39 | XMS_ITS | Encounter Summary ---
Author Organization [employer] Address [address] [facility] 7t [place] [address] Care Team Providers Care Food Mixer Repairer Name Role Phone Elizabeth Workman LIFE SPECIALIST Primary Care Provider [phone] Encounter Details Date Type Department Care Team (Latest Contact Info) Description 05/16/2025 Travel Social History Tobacco Use Types Packs/Day [...] t he electric, gas, oil or water [employer] threatened to shut off services in your [...] Description 06/06/2025 9:30 AM EST Clinical Support [address] [address] 07/04/2025 9:00 AM EST Office Visit [address] [address] Elizabeth Workman FNP [address] [place] [address] documented as of this encounter Visit Diagnoses Not on filedocumented in this encounter Additional Health Concerns Assessment Noted Time PHQ-9 Depression Total Score: 6 02/24/20 25 9:11 AM EDT documented as of this encounter Care Teams Food Mixer Repairer Relationship Specialty Start Date End Date Elizabeth Workman FNP [address] [place] [phone] PCP - General Family Medicine 12/24/23 documented as of this encounter
--- OUTSIDE RECORDS SUMMARY | 2025-05-21 20:39 | XMS_ITS | Encounter Summary ---
Author Organization [employer] Address [address] [facility] [address]t [place] [address] Care Team Providers Care Dispensary Technician Name Role Phone Yaneth Mirza DO Primary Care Provider Argentina Castañeda ROLLER BEARING INSPECTOR Primary Care Provider [phone] Norah Bernardo SHEET METAL FORMER Primary Care Provider [place] ROLLER BEARING INSPECTOR Primary Care Provider Reason for Visit * Reason Onset Date Comments triage 11/03/2022 Encounter Details Date Type Department Care Team (Late st Contact Info) Description 11/03/2022 Telephone [facility] [address] [place], [place] [phone] Yaneth Mirza DO [address] [place], [place] [phone] triage Social History Tobacco Use Types Packs/Day [...] 11/03/2022 2:03 PM EDT Triage call with [place] Repair Service Dispatcher [place] [id number] Pt mother reports Pt started with a [...] today. Advised Mother to [facility] today forprovider to see her. Mother agreed [...] Description 06/06/2025 9:30 AM EST Clinical Support [address] [address] 07/04/2025 9:00 AM EST Office Visit [address] [address] Elizabeth Workman FNP [address] [place] [address] documented as of this encounter Visit Diagnoses Not on filedocumented in this encounter Care Teams Dispensary Technician Relationship Specialty Start Date End Date Yaneth Mirza DO [address] [place] [phone] PCP - General Pediatrics 06/07/18 06/28/23 Argentina Castañeda FNP [address] [place] [phone] PCP - General Family Medicine 06/29/23 11/17/23 Norah Bernardo NP [address] [place] [phone] PCP - General Family Medicine 11/18/23 12/23/23 [place] FNP [address] [place] [phone] PCP - General Family Medicine 12/24/23 documented as of this encounter
--- OUTSIDE RECORDS SUMMARY | 2025-05-21 20:39 | XMS_ITS | Encounter Summary ---
Author Organization [email or web address] Address [address] [place] [address] Care Team Providers Care Aeronautical Engineering Teacher Name Role Phone Elizabeth Workman DECK SUPERVISOR Primary Care Provider [phone] Encounter Details Date Type Department Care Team ([facility] Contact Info) Description 05/17/2025 Orders Only [facility] [address] [place] [address] Aaron Shah MD [address] [place] [address] Social History Tobacco Use Types Packs/Day Years [...] Description 06/06/2025 9:30 AM EST Clinical Support [address] [address] 07/04/2025 9:00 AM EST Office Visit [address] [address] Elizabeth Workman FNP [address] [place] [address] documented as of this encounter Visit Diagnoses Not on filedocumented in this encounter Additional Health Concerns Assessment Noted Time PHQ-9 Depression Total Score: 6 02/24/20 25 9:11 AM EDT documented as of this encounter Care Teams Aeronautical Engineering Teacher Relationship Specialty Start Date End Date Elizabeth Workman FNP [address] [place] [address] PCP - General Family Medicine 12/24/23 documented as of this encounter
--- OUTSIDE RECORDS SUMMARY | 2025-05-21 20:39 | XMS_ITS | Encounter Summary ---
Author Organization [employer] Address [address] [facility] [address] [facility] [address] [place] [address] Care Team Providers Care Desizing Machine Offbearer Name Role Phone Elizabeth Workman ASSOCIATE DEAN OF STUDENTS Primary Care Provider [phone] Encounter Details Date Type Department Care Team ([facility] Contact Info) Description 05/17/2025 Telephone [facility] [address] [place] [address] Aaron Shah MD [address] [place] [address] Social History Tobacco Use Types Packs/Day Years [...] Telephone Encounter - Aaron Shah MD - 05/17/2025 6:19 PM EST I notified pt. of lab test results from yesterday and prescribed Diflucan and Flagyl. documented in this encounter Plan of Treatment Upcoming Encounters Date Type Department Care Team (Late st Contact Info) Description 06/06/2025 9:30 AM EST Clinical Support [facility] [address] [place] [phone] 07/04/2025 9:00 AM EST Office Visit [facility] [address] [place] [phone] Elizabeth Workman FNP [address] [place] [phone] documented as of this encounter Visit Diagnoses Not on filedocumented in this encounter Additional Health Concerns Assessment Noted Time PHQ-9 Depression Total Score: 6 02/24/20 25 9:11 AM EDT documented as of this encounter Care Teams Desizing Machine Offbearer Relationship Specialty Start Date End Date Elizabeth Workman FNP [address] [place] [phone] PCP - General Family Medicine 12/24/23 documented as of this encounter
== END 2025-05-21 14:12 | disposition home or self-care (01) ==
LOC: HO.HHCL 14:11
PROVIDERS: PCP Registered Nurse; Referring Provider Emergency Medicine; Visit Provider Registered Nurse
DX: R30.0 Dysuria (principal); D72.819 Decreased white blood cell count, unspecified
CPT/HCPCS: 84165; 85025; 87086